=== PATIENT | female | born 1935 | race Caucasian/White ===

== ENCOUNTER 2022-11-09 15:32 | Inpatient (IN) ==
[2022-11-09] MEDS ORDERED: OPTIRAY 320 500ml IV ONE (15:46)
[2022-11-09 16:01] LABS: Basophils # (auto) 0.03 K/uL (0-0.2); Basophils % (auto) 0.5 %; Eosinophils # (auto) 0.02 K/uL (0-0.50); Eosinophils % (auto) 0.4 %; Hematocrit (blood only) 35.5 % (34.1-44.9); Immature Granulocytes # (auto) 0.02 K/uL (0.00-0.02); Immature Granulocytes % (auto) 0.4 %; Lymphocytes # (auto) 0.55 K/uL (1.2-3.4); Lymphocytes % (auto) 9.7 %; Mean Corpuscular Hemoglobin 32.5 pg (25.0-34.0); Mean Corpuscular Hgb Conc 33.8 g/dL (32.0-36.0); Mean Corpuscular Volume 96.2 fL (80.0-100.0); Mean Platelet Volume 10.7 fL (9.4-12.3); Monocytes # (auto) 0.37 K/uL (0.24-0.82); Monocytes % (auto) 6.5 %; Neutrophils # (auto) 4.68 K/uL (1.4-6.5); Neutrophils % (auto) 82.5 %; Platelet Count 247 K/uL (130-400); RDW Coefficient of Variation 13.2 % (11.5-14.5); RDW Standard Deviation 47.4 fL (36.4-46.3); Red Blood Count 3.69 M/uL (3.93-5.22); White Blood Count 5.67 K/ul (4.8-10.8)
--- NOTE | 2022-11-09 16:01 | CT Scan Report ---
CT head/brain wo con CLINICAL HISTORY: 87 years-old Female with neuro deficit, acute stroke suspected. Acute strokelike s ymptoms. TECHNIQUE: Multiple axial CT images of the head were obtained without contrast. A dose lowering tech nique was utilized adhering to the principles of ALARA. COMPARISON: CTA had and neck of same day FINDINGS: No acute intracranial hemorrhage, midline shift, intra-axial mass, hydrocephalus, territorial ischemi a or abnormal extra-axial collection. Hyperdense partially calcified mass in the superior quadrigemin al plate cistern within the falx cerebri measures approximately 4.3 x 3.3 x 3.5 cm causing mass effec t upon the adjacent third and lateral ventricles, thalami and parietal lobes. Involutional changes. M oderate white matter hypodensities suggestive of chronic microvascular ischemic disease. Cerebral vas cular calcifications. The calvarium is intact. The paranasal sinuses, mastoid air cells, and middle ear cavities are clear . IMPRESSION: 1. No acute intracranial abnormality. 2. 4.3 cm hyperdense partially calcified extra-axial mass involving the mid aspect of the falx cerebr i extending into the superior aspect of the quadrigeminal plate cistern is suggestive of a probable m eningioma causing local mass effect. As a precautionary measure, a nonemergent follow-up MRI of the b rain with and without IV contrast may be considered. 3. Involutional changes with chronic microvascular ischemic disease. ACT 112: Negative or not required by law. The above report was generated using voice recognition software. It may contain grammatical, syntax o r spelling errors. Electronically signed by: Reynaldo George M.D. 11/09/2022 4:00 PM
[2022-11-09 16:16] LABS: Partial Thromboplastin Ratio 0.9; Prothrombin Time 10.7 Seconds (9.0-12.0)
[2022-11-09] MEDS ORDERED: ASPIRIN 300 MG SUPP PR ONE (16:18)
[2022-11-09] MEDS ORDERED: SODIUM CHLORIDE 0.9% 1000ML 500 ML IV ONE (16:18)
[2022-11-09 16:26] LABS: Albumin Globulin Ratio 1.5 (0.9-2); Albumin Level 4.1 gm/dl (3.4-5.0); BUN Creatinine Ratio 35.1 (10-20); Bilirubin,Total 0.6 mg/dl (0.2-1.0); Calcium 9.1 mg/dl (8.5-10.1); Creatinine Clr Calc Pharmacy 66.2 ml/min; Est GFR (African American) 97.3 ml/min; Est GFR (Non-African American) 83.9 ml/min; Globulin 2.7 gm/dl (2.5-4.0); Potassium 4.4 mmol/L (3.5-5.1); Total Protein 6.8 gm/dl (6.0-8.3)
[2022-11-09] MEDS ORDERED: ATORVASTATIN 40 MG TAB PO ONE (16:30)
[2022-11-09] MEDS ORDERED: MAGNESIUM SULFATE / D5W 1 GM/100 ML BAG IV SCH (16:30)
[2022-11-09] MEDS ORDERED: ATORVASTATIN 40 MG TAB PO SCH (16:30)
[2022-11-09 16:31] LABS: Troponin I High Sensitivity 11.3 pg/ml (0-14)
--- NOTE | 2022-11-09 16:32 | History & Physical Report ---
Date of Service November 09, 2022 Assessment & Plan (1) Acute CVA (cerebrovascular accident): (2) Meningioma: (3) Weakness of right upper extremity: (4) Dysarthria: Plan: - Admit to PCU - Stroke order set completed, no indication for thrombolytic as pt with likely meningioma on CT reviewed personally by myself. -Meningioma is known since 2015 and previously followed with Dr. Rosales with neurology as outpatient, was nonoperable, has not followed with neurology since this physician retired years ago. Pt notes intermittent visual disturbances every few months as per HPI, none today. - Teleneurology with [facility] was contacted by the ER. Aspirin and atorvastatin ordered already. - I discussed the case with Dr. Brown, neurologist myself over the phone. He has recommended statin and aspirin as soon as possible, orally if the patient can tolerate swallowing. Speech therapy is consulted for evaluation. If pt can not take oral medications should place an NGT. It is likely that this is a small vessel lacunar infarct involving a subcortical branch of the internal capsule of the thalamus region which are commonly associated with stuttering symptoms. Frequent evaluations of strength and speech are recommended to assess for acute changes. If worsening symptoms then need to give Plavix load of 300 mg and call teleneurology back. TPA was not given due to the increased bleeding risk associated with meningioma. Allow permissive hypertension with SBP 180-200 / DBP 90-100 - CT head reviewed, will obtain MRI brain w/wo contrast - Neurology consulted - Dr. Truong - PT/OT consults placed - Discussion with daughterDanyelle was held at bedside, all questions and concerns were addressed. DVT ppx: teds, scds, aspirin 81 mg daily CODE: DNR/DNI Dispo: From home, lives alone, PT/OT consults, likely to remain in the hospital x 1-2 days. History of Present Illness Chief Complaint: CVA Primary Care Provider: NO PCP This is an 87 yo F with PMhx of breast cancer s/p bilateral mastectomy in the early 1980s, and hx of meningioma which was nonoperable since 2014, who presents with acute onset of right lower extremity weakness which began at approximately 1330 this afternoon. She also had dysarthria, right upper and lower extremity weakness at the same time. Pt reports that she had difficulty calling on the phone, and when she attempted to stand from a sitting position, she slumped down to the ground. Pt was trying to call her son who lives next door and 911 for about an hour until she was able to get 911 to come to the house. She feels her speech is a bit better at this time, as she can say more than one word although it is more garbled. Pt notes she is unable to move her right arm much at all, and has to assist it with the left. Strength in the right leg is weak compared to the left as well. Prior to this event, she lives at home independently and does not use any ambulatory devices. Pt notes previously followed with Dr. Rosales with neurology for the meningioma and that it was non operable. She mentions getting "blotchy eyes" with spots and visual disturbances every few months since knowing that the meningioma was there, and that after lying down for 20-30 minutes this would improve. Denies any visual prodrome today and denies any visual disturbances like this recently. Pt denies headache. Family Hx: has one younger brother who of throat/mouth cancer and reports he chewed snuff. Denies family hx of heart disease, lung issues, diabetes, stroke. Surgical Hx: small bowel obstruction with lysis of adhesions in 2015, bilateral mastectomy in , partial hysterectomy prior to 1979. Social Hx: Pt does not routinely take any medications. No hx of smoking or alcohol use. Allergies Allergy/AdvReac Type Severity Reaction Status Date / Time No Known Allergies Allergy Verified 11/09/22 16:35 Home Medications Medication Instructions Recorded Confirmed Type No Known Home Medications 11/09/22 11/09/22 History Past Med/Surg History Medical History Hx of small bowel obstruction S/p lysis of adhesions HX: breast cancer Meningioma Surgical History Hx of bilateral mastectomy Family History Brother Cancer throat cancer Social History Smoking Status: Never smoker Second Hand Exposure: Yes; Do You Dip or Chew Tobacco: No; Tobacco Cessation Education Requested by Patient: No Hx Alcohol Use: No Hx Substance Use: No Preferred Language: Slovak Communication Ability: Effective Upkeep Mechanic Required: No Beliefs That Will Affect Care: None Current Living Situation: Alone Other Information That Helps Us Care for You: No Feels Safe at Home: Yes Safety Concerns: Feels Safe At This Time Assistive Devices: None Review of Systems Review of Systems: Constitutional: No fever, sweats or chills Eyes: As per HPI, No diplopia, no worsening or blurred vision ENT: normal hearing, no trouble swallowing Respiratory: No cough, sputum, dyspnea at rest or on exertion Cardiovascular: No chest pain, tightness or palpitations Abdomen: No pain, nausea, vomiting, diarrhea or constipation Musculoskeletal: No joint pain, calf pain, swelling Neurologic: + Right sided upper extremity weakness, right lower extremity weakness, +difficulty speaking, no other numbness/tingling Psychiatric: No anxiety or depression Skin: No rash or itch Physical Exam 2 Physical Exam: General: awake, alert, no apparent distress Head: Normocephalic, atraumatic ENT: PERRL, EOMI, no pharyngeal exudate, mucous membranes moist Chest: Clear to auscultation, on room air, no adventitious breath sounds Cardiac: Regular rate and rhythm, + opening click, no murmur, no JVD, normal peripheral pulses, good capillary refill Abdominal: NABS x 4 quadrants, soft, nondistended, nontender to palpation, no rebound or guarding Extremities: normal muscle bulk and tone, equal bilaterally, no lower extremity edema or erythema, no calf tenderness with palpation Psych: Normal mood and affect Neuro: AAO x 3, CN II-XII intact. RUE unable to extend arms, cannot pronate, can squeeze fingers with good strength but cannot complete dexterity testing with finger to thumb. RLE strength discrepancy rated 4/5, compared to the left as a 5/5. Difficulty with heel to morris testing. Facial nerve testing is symmetrical, can smile/frown/wrinkle forehead without droop. + Dysarthria with garbled speech but is able to talk in sentences which are mostly able to be made out, +stuttering of speech. Results & Data Results & Data ([facility]) Vital Signs (Past 12 Hours) Vital Signs Temp Pulse Resp BP Pulse Ox O2 Del Method 11/09/22 15:59 36.9 C 91 H 22 184/101 H 98 Room Air Laboratory Results 11/09/22 11/09/22 11/09/22 15:52 15:30 15:30 WBC RBC Hgb Hct MCV MCH MCHC RDW Std Deviation RDW Coeff of Valeriy Plt Count MPV Immature Gran % (Auto) Neut % (Auto) Lymph % (Auto) Glynn % (Auto) Eos % (Auto) Baso % (Auto) Neut # (Auto) Lymph # (Auto) Glynn # (Auto) Eos # (Auto) Baso # (Auto) Immature Gran # (Auto) PT 10.7 INR 1.0 APTT 26.0 PTT Ratio 0.9 Sodium 138 Potassium 4.4 Chloride 104 Carbon Dioxide 27 Anion Gap 7 BUN 20 Creatinine 0.57 L Est Cr Clr Drug Dosing 66.2 Est GFR ( Amer) 97.3 Est GFR (Non-Af Amer) 83.9 BUN/Creatinine Ratio 35.1 H Glucose 98 POC Glucose 97 Calcium 9.1 Magnesium 2.0 Total Bilirubin 0.6 AST 21 ALT 13 Alkaline Phosphatase 53 Troponin I High Sens 11.3 Total Protein 6.8 Albumin 4.1 Globulin 2.7 Albumin/Globulin Ratio 1.5 SARS-CoV-2, RNA, NAAT 11/09/22 11/09/22 15:30 14:38 WBC 5.67 RBC 3.69 L Hgb 12.0 Hct 35.5 MCV 96.2 MCH 32.5 MCHC 33.8 RDW Std Deviation 47.4 H RDW Coeff of Valeriy 13.2 Plt Count 247 MPV 10.7 Immature Gran % (Auto) 0.4 Neut % (Auto) 82.5 Lymph % (Auto) 9.7 Glynn % (Auto) 6.5 Eos % (Auto) 0.4 Baso % (Auto) 0.5 Neut # (Auto) 4.68 Lymph # (Auto) 0.55 L Glynn # (Auto) 0.37 Eos # (Auto) 0.02 Baso # (Auto) 0.03 Immature Gran # (Auto) 0.02 PT INR APTT PTT Ratio Sodium Potassium Chloride Carbon Dioxide Anion Gap BUN Creatinine Est Cr Clr Drug Dosing Est GFR ( Amer) Est GFR (Non-Af Amer) BUN/Creatinine Ratio Glucose POC Glucose Calcium Magnesium Total Bilirubin AST ALT Alkaline Phosphatase Troponin I High Sens Total Protein Albumin Globulin Albumin/Globulin Ratio SARS-CoV-2, RNA, NAAT NEGATIVE Diagnostic Findings Chest X-Ray 11/09/22 15:36 XR chest 1V portable CLINICAL HISTORY: neuro deficit, acute stroke suspected TECHNIQUE: Single frontal radiograph of the chest was obtained. Comparison: None available at the time of this dictation. FINDINGS: No lines and tubes are seen. Calcified aortic knob is seen. There is suggestion of emphysema. No evidence of pleural effusion or pneumothorax. IMPRESSION: No acute chest disease. ACT 112: Negative or not required by law. Electronically signed by: Timmy Mckinnon M.D. 11/09/2022 4:[address] 11/09/22 15:36 CT head/brain wo con CLINICAL HISTORY: 87 years-old Female with neuro deficit, acute stroke suspected. Acute strokelike symptoms. TECHNIQUE: Multiple axial CT images of the head were obtained without contrast. A dose lowering technique was utilized adhering to the principles of ALARA. COMPARISON: CTA had and neck of same day FINDINGS: No acute intracranial hemorrhage, midline shift, intra-axial mass, hydrocephalus, territorial ischemia or abnormal extra-axial collection. Hyperdense partially calcified mass in the superior quadrigeminal plate cistern within the falx cerebri measures approximately 4.3 x 3.3 x 3.5 cm causing mass effect upon the adjacent third and lateral ventricles, thalami and parietal lobes. Involutional changes. Moderate white matter hypodensities suggestive of chronic microvascular ischemic disease. Cerebral vascular calcifications. The calvarium is intact. The paranasal sinuses, mastoid air cells, and middle ear cavities are clear. IMPRESSION: 1. No acute intracranial abnormality. 2. 4.3 cm hyperdense partially calcified extra-axial mass involving the mid aspect of the falx cerebri extending into the superior aspect of the quadrigeminal plate cistern is suggestive of a probable meningioma causing local mass effect. As a precautionary measure, a nonemergent follow-up MRI of the brain with and without IV contrast may be considered. 3. Involutional changes with chronic microvascular ischemic disease. ACT 112: Negative or not required by law. The above report was generated using voice recognition software. It may contain grammatical, syntax or spelling errors. Electronically signed by: Reynaldo George M.D. 11/09/2022 4:00 PM Head CTA 11/09/22 15:36 CT ANGIOGRAM OF THE BRAIN; CT ANGIOGRAM OF THE NECK CLINICAL HISTORY: Right-sided weakness. Neurological deficit. Stroke like symptoms. COMPARISON STUDY: Unenhanced CT of the brain performed concurrently on 11/09/2022. TECHNIQUE: Following the IV administration of 109 of Optiray 320, CT angiogram of the head and neck was performed from the aortic arch to the vertex. Images are reviewed in the axial, sagittal, and coronal planes. 3-D MIPS images are created and assessed. IV contrast was administered without complication. All measurements were calculated based on NASCET criteria. A dose lowering technique was utilized adhering to the principles of ALARA. CT DOSE: 1180.87 mGy.cm FINDINGS: Brain parenchyma: There is age-related involutional change noting moderate confluent subcortical and periventricular microangiopathic disease. There is no evidence of hemorrhage, midline shift, or acute territorial ischemia by CT criteria noting angiographic phase technique. There is an approximately 4 x 4 x 4 cm calcification-containing extra-axial mass identified in the posterior fossa along the tentorium cerebelli and falx. This causes localized mass effect. There is no evidence of obstructing hydrocephalus. No additional enhancing lesion is seen. The ventricles, sulci, and cisterns are prominent secondary to involutional change. Mitchell-white matter differentiation is preserved. No extra- axial fluid collection is seen. Thoracic aorta: There is atherosclerotic calcification of the thoracic aorta. Visualized portions of the thoracic aorta are normal in caliber. The aortic arch demonstrates standard 3-vessel anatomy. Right carotid arterial system: The right common carotid artery is widely patent, as are the right internal and external carotid arteries. Mild calcified plaque is seen in the carotid bulb. Left carotid arterial system: The left common carotid artery is widely patent, as are the left internal and external carotid arteries. Calcified plaque is seen in the carotid bulb. Vertebral arteries: The vertebral arteries are widely patent bilaterally noting left-sided dominance. Subclavian arteries: Widely patent bilaterally. Intracranial vasculature: There is atherosclerotic calcification of the cavernous carotid and vertebral arteries. The [place] is developmentally complete. The internal carotid arteries are patent at the skull base, as are the anterior and middle cerebral arteries bilaterally. The vertebrobasilar system and posterior cerebral arteries are widely patent. The left vertebral artery is dominant. There is no aneurysm, high-grade stenosis, or focal vessel cut off seen throughout the intracranial circulation. Jugular veins: Patent bilaterally. Dural sinuses: Patent. 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 Partially visualized upper lobe lung parenchyma appears clear noting parenchymal scarring. Soft tissues: The visualized pharyngeal soft tissues are normal in appearance noting angiographic phase technique. The oropharyngeal airway appears widely patent. The thyroid gland is mildly enlarged and heterogeneous. The salivary glands are normal in appearance. No cervical lymphadenopathy is seen. Skeletal structures: The skeletal structures are osteopenic. The calvarium appears intact. The cervical spine is maintained noting mild multilevel spondylosis. No lytic or blastic lesion is seen. Orbits: The bony orbits are intact. Orbital contents are normal as visualized noting bilateral ocular lens implants. Sinuses and mastoids: The paranasal sinuses are clear. The mastoid air cells are well pneumatized. IMPRESSION: 1. There is no evidence of hemorrhage, midline shift, or acute territorial ischemia by CT criteria noting angiographic phase technique. 2. There is approximately 4 cm extra-axial mass lesion in the posterior fossa as detailed above. This is typical for a meningioma and causes localized mass effect. There is no evidence of obstructing hydrocephalus. 3. Unremarkable CT angiogram of the brain. 4. Unremarkable CT angiogram of the neck. ACT 112: Negative or not required by law. Electronically signed by: Nicko Love M.D. 11/09/2022 4:32 PM Neck CTA 11/09/22 15:36 CT ANGIOGRAM OF THE BRAIN; CT ANGIOGRAM OF THE NECK CLINICAL HISTORY: Right-sided weakness. Neurological deficit. Stroke like symptoms. COMPARISON STUDY: Unenhanced CT of the brain performed concurrently on 11/09/2022. TECHNIQUE: Following the IV administration of 109 of Optiray 320, CT angiogram of the head and neck was performed from the aortic arch to the vertex. Images are reviewed in the axial, sagittal, and coronal planes. 3-D MIPS images are created and assessed. IV contrast was administered without complication. All measurements were calculated based on NASCET criteria. A dose lowering technique was utilized adhering to the principles of ALARA. CT DOSE: 1180.87 mGy.cm FINDINGS: Brain parenchyma: There is age-related involutional change noting moderate confluent subcortical and periventricular microangiopathic disease. There is no evidence of hemorrhage, midline shift, or acute territorial ischemia by CT criteria noting angiographic phase technique. There is an approximately 4 x 4 x 4 cm calcification-containing extra-axial mass identified in the posterior fossa along the tentorium cerebelli and falx. This causes localized mass effect. There is no evidence of obstructing hydrocephalus. No additional enhancing lesion is seen. The ventricles, sulci, and cisterns are prominent secondary to involutional change. Mitchell-white matter differentiation is preserved. No extra- axial fluid collection is seen. Thoracic aorta: There is atherosclerotic calcification of the thoracic aorta. Visualized portions of the thoracic aorta are normal in caliber. The aortic arch demonstrates standard 3-vessel anatomy. Right carotid arterial system: The right common carotid artery is widely patent, as are the right internal and external carotid arteries. Mild calcified plaque is seen in the carotid bulb. Left carotid arterial system: The left common carotid artery is widely patent, as are the left internal and external carotid arteries. Calcified plaque is seen in the carotid bulb. Vertebral arteries: The vertebral arteries are widely patent bilaterally noting left-sided dominance. Subclavian arteries: Widely patent bilaterally. Intracranial vasculature: There is atherosclerotic calcification of the cavernous carotid and vertebral arteries. The [place] is developmentally complete. The internal carotid arteries are patent at the skull base, as are the anterior and middle cerebral arteries bilaterally. The vertebrobasilar system and posterior cerebral arteries are widely patent. The left vertebral artery is dominant. There is no aneurysm, high-grade stenosis, or focal vessel cut off seen throughout the intracranial circulation. Jugular veins: Patent bilaterally. Dural sinuses: Patent. 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 Partially visualized upper lobe lung parenchyma appears clear noting parenchymal scarring. Soft tissues: The visualized pharyngeal soft tissues are normal in appearance noting angiographic phase technique. The oropharyngeal airway appears widely patent. The thyroid gland is mildly enlarged and heterogeneous. The salivary glands are normal in appearance. No cervical lymphadenopathy is seen. Skeletal structures: The skeletal structures are osteopenic. The calvarium appears intact. The cervical spine is maintained noting mild multilevel spondylosis. No lytic or blastic lesion is seen. Orbits: The bony orbits are intact. Orbital contents are normal as visualized noting bilateral ocular lens implants. Sinuses and mastoids: The paranasal sinuses are clear. The mastoid air cells are well pneumatized. IMPRESSION: 1. There is no evidence of hemorrhage, midline shift, or acute territorial ischemia by CT criteria noting angiographic phase technique. 2. There is approximately 4 cm extra-axial mass lesion in the posterior fossa as detailed above. This is typical for a meningioma and causes localized mass effect. There is no evidence of obstructing hydrocephalus. 3. Unremarkable CT angiogram of the brain. 4. Unremarkable CT angiogram of the neck. ACT 112: Negative or not required by law. Electronically signed by: Nicko Love M.D. 11/09/2022 4:32 PM Pelvis X-Ray 11/09/22 15:36 XR pelvis 1-2V routine CLINICAL HISTORY: fall TECHNIQUE: A single frontal view of the pelvis was obtained. Comparison: None available at the time of this dictation. FINDINGS: There is no evidence of an acute fracture. Degenerative changes are seen in the hip joints and lumbar spine. No soft tissue abnormality is seen. Excretion of contrast is noted in the ureters and bladder likely due to prior contrast study. IMPRESSION: Degenerative changes without evidence of acute abnormality. ACT 112: Negative or not required by law. Electronically signed by: Timmy Mckinnon M.D. 11/09/2022 4:52 PM Code Status & VTE Plan Code Status DNR/DNI - discussed with the patient at bedside Supervising Physician Co-Signing Physician Notes Pt seen and examined by me, care coordinated w/ G. ANN Johnson, pls refer to her note above for further detail. 87 F w/ hx of meningioma who now presents with CVA - right sided weakness and slurred speech. Pt's daughter present at the bedside. Pt currently awake, alert, oriented and answering questions appropriately. Continues to have slurred speech buy able to provide hx. No chest pain, palpitations, shortness of breath. No abd. pain, nausea, vomiting, No headache. + RUE and RLE weakness. Skin is warm and dry. Stroke telemedicine contacted - w/ [facility] - and ASA + statin was initiated. Pt passed speech eval and able to take meds. Continue to closely monitor. Obtain brain MRI. Neurology inpt consult. MD Jazmín
--- NOTE | 2022-11-09 16:34 | CT Scan Report ---
CT ANGIOGRAM OF THE BRAIN; CT ANGIOGRAM OF THE NECK CLINICAL HISTORY: Right-sided weakness. Neurological deficit. Stroke like symptoms. COMPARISON STUDY: Unenhanced CT of the brain performed concurrently on 11/09/2022. TECHNIQUE: Following the IV administration of 109 of Optiray 320, CT angiogram of the head and neck w as performed from the aortic arch to the vertex. Images are reviewed in the axial, sagittal, and ramando nal planes. 3-D MIPS images are created and assessed. IV contrast was administered without complicati on. All measurements were calculated based on NASCET criteria. A dose lowering technique was utilize d adhering to the principles of ALARA. CT DOSE: 1180.87 mGy.cm FINDINGS: Brain parenchyma: There is age-related involutional change noting moderate confluent subcortical and periventricular microangiopathic disease. There is no evidence of hemorrhage, midline shift, or acute territorial ischemia by CT criteria noting angiographic phase technique. There is an approximately 4 x 4 x 4 cm calcification-containing extra-axial mass identified in the posterior fossa along the te ntorium cerebelli and falx. This causes localized mass effect. There is no evidence of obstructing hy drocephalus. No additional enhancing lesion is seen. The ventricles, sulci, and cisterns are prominen t secondary to involutional change. Mitchell-white matter differentiation is preserved. No extra-axial fl uid collection is seen. Thoracic aorta: There is atherosclerotic calcification of the thoracic aorta. Visualized portions of the thoracic aorta are normal in caliber. The aortic arch demonstrates standard 3-vessel anatomy. Right carotid arterial system: The right common carotid artery is widely patent, as are the right int ernal and external carotid arteries. Mild calcified plaque is seen in the carotid bulb. Left carotid arterial system: The left common carotid artery is widely patent, as are the left event marketing intern al and external carotid arteries. Calcified plaque is seen in the carotid bulb. Vertebral arteries: The vertebral arteries are widely patent bilaterally noting left-sided dominance. Subclavian arteries: Widely patent bilaterally. Intracranial vasculature: There is atherosclerotic calcification of the cavernous carotid and vertebr al arteries. The [place] is developmentally complete. The internal carotid arteries are manuel nt at the skull base, as are the anterior and middle cerebral arteries bilaterally. The vertebrobasil ar system and posterior cerebral arteries are widely patent. The left vertebral artery is dominant. T here is no aneurysm, high-grade stenosis, or focal vessel cut off seen throughout the intracranial ci rculation. Jugular veins: Patent bilaterally. Dural sinuses: Patent. 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 Partially visualized upper lobe l paulina parenchyma appears clear noting parenchymal scarring. Soft tissues: The visualized pharyngeal soft tissues are normal in appearance noting angiographic pha se technique. The oropharyngeal airway appears widely patent. The thyroid gland is mildly enlarged an d heterogeneous. The salivary glands are normal in appearance. No cervical lymphadenopathy is seen. Skeletal structures: The skeletal structures are osteopenic. The calvarium appears intact. The cervic al spine is maintained noting mild multilevel spondylosis. No lytic or blastic lesion is seen. Orbits: The bony orbits are intact. Orbital contents are normal as visualized noting bilateral ocular lens implants. Sinuses and mastoids: The paranasal sinuses are clear. The mastoid air cells are well pneumatized. IMPRESSION: 1. There is no evidence of hemorrhage, midline shift, or acute territorial ischemia by CT criteria no ting angiographic phase technique. 2. There is approximately 4 cm extra-axial mass lesion in the posterior fossa as detailed above. This is typical for a meningioma and causes localized mass effect. There is no evidence of obstructing hy drocephalus. 3. Unremarkable CT angiogram of the brain. 4. Unremarkable CT angiogram of the neck. ACT 112: Negative or not required by law. Electronically signed by: Nicko Love M.D. 11/09/2022 4:32 PM
[2022-11-09] MEDS: MAGNESIUM SULFATE / D5W 1 GM/100 ML BAG IV SCH ×2 (16:48→17:24)
--- NOTE | 2022-11-09 16:53 | XRay Report ---
XR chest 1V portable CLINICAL HISTORY: neuro deficit, acute stroke suspected TECHNIQUE: Single frontal radiograph of the chest was obtained. Comparison: None available at the time of this dictation. FINDINGS: No lines and tubes are seen. Calcified aortic knob is seen. There is suggestion of emphysema. No evid ence of pleural effusion or pneumothorax. IMPRESSION: No acute chest disease. ACT 112: Negative or not required by law. Electronically signed by: Timmy Mckinnon M.D. 11/09/2022 4:51 PM
--- NOTE | 2022-11-09 16:53 | XRay Report ---
XR pelvis 1-2V routine CLINICAL HISTORY: fall TECHNIQUE: A single frontal view of the pelvis was obtained. Comparison: None available at the time of this dictation. FINDINGS: There is no evidence of an acute fracture. Degenerative changes are seen in the hip joints and lumbar spine. No soft tissue abnormality is seen. Excretion of contrast is noted in the ureters and bladde r likely due to prior contrast study. IMPRESSION: Degenerative changes without evidence of acute abnormality. ACT 112: Negative or not required by law. Electronically signed by: Timmy Mckinnon M.D. 11/09/2022 4:52 PM
[2022-11-09] MEDS: SODIUM CHLORIDE 0.9% 500 ML IV SCH ×2 (17:24→23:52)
--- NOTE | 2022-11-09 17:59 | Emergency Department Note ---
History of Present Illness General Chief complaint: Stroke Alert Stated complaint: stroke alert Time Seen by Provider: 11/09/22 15:35 Source: EMS History of Present Illness Provider complaint: Weakness fall Onset (ago): hour(s) 2 87-year-old female presents emergency department for weakness and fall. Per EMS the patient tried to get up at approximately 1:30 PM, 2 hours ago and felt like she could not move her right leg and then subsequently fell. Per EMS she was having dysarthria and aphasia and weakness in her right upper extremity as well as the right lower extremity. No blood thinners. No fevers. No headaches. Home Medications Medication Instructions Recorded Confirmed Type No Known Home Medications 11/09/22 11/09/22 History Allergies Allergy/AdvReac Type Severity Reaction Status Date / Time No Known Allergies Allergy Verified 11/09/22 16:35 Past Med/Surg History Medical History Hx of small bowel obstruction S/p lysis of adhesions HX: breast cancer Meningioma Surgical History Hx of bilateral mastectomy Family History Brother Cancer throat cancer Social History Smoking Status: Never smoker Hx Alcohol Use: No Hx Substance Use: No Preferred Language: Albanian Feels Safe at Home: Yes Review of Systems A total of 10 systems reviewed and were otherwise negative Physical Exam Vital Signs Vital Signs - 24 hr 11/09/22 15:59 11/09/22 16:53 11/09/22 17:25 Temperature 36.9 C Temperature Source Oral Pulse Rate 91 H Pulse Rate [Right Finger] 74 80 Respiratory Rate 22 22 19 Respiratory Effort / Characteristics Non-Labored Spontaneous Non-Labored Spontaneous Respiratory Depth Normal Normal Respiratory Pattern Regular Blood Pressure 184/101 H Blood Pressure [Right Arm] 147/77 H 161/121 H Blood Pressure Mean 128 Blood Pressure Mean [Right Arm] 100 134 Pulse Oximetry 98 100 96 Oxygen Delivery Method Room Air Room Air Room Air Sepsis Recent Fever Within 48 Hours No Sepsis New/Unexplained Change in Mental Status N/A Sepsis Action Taken by Nursing No Action Required 11/09/22 17:46 Temperature Temperature Source Pulse Rate Pulse Rate [Right Finger] 76 Respiratory Rate 24 Respiratory Effort / Characteristics Non-Labored Spontaneous Respiratory Depth Normal Respiratory Pattern Blood Pressure Blood Pressure [Right Arm] 171/89 H Blood Pressure Mean Blood Pressure Mean [Right Arm] 116 Pulse Oximetry 98 Oxygen Delivery Method Room Air Sepsis Recent Fever Within 48 Hours Sepsis New/Unexplained Change in Mental Status Sepsis Action Taken by Nursing Physical Exam EYES: Conjunctivae and EOM are normal. Pupils are equal, round, and reactive to light. Right eye exhibits no discharge. Left eye exhibits no discharge. No scleral icterus. NECK: Normal range of motion. Neck supple. No JVD present. No spinous process tenderness present. No carotid bruit present. No rigidity. No tracheal deviation and normal range of motion present. No Brudzinski's sign and no Kernig's sign noted. CV: Normal rate, regular rhythm, normal heart sounds and intact distal pulses. There is no peripheral edema. Palpable radial pulses bue. PULM/CHEST: Effort normal and breath sounds normal. No respiratory distress. No stridor. She has no wheezes. She has no rales. -Chest Wall: She exhibits no tenderness. ABD: The abdomen is soft. MUSC/SKEL: Pelvis stable. NEURO: NIHSS: 11 (5b:3, 6b:3, 7:1, 8:1, 9:1, 10:1, 11:1) SKIN: Skin is warm and dry. She is not diaphoretic. Course Course 1515:Per EMS the patient tried to get up at approximately 1:30 PM, 2 hours ago and felt like she could not move her right leg and then subsequently fell. Per EMS she was having dysarthria and aphasia and weakness in her right upper extremity as well as the right lower extremity. Code stroke called for the patient. 1535: The patient was evaluated in room B1. A complete history and physical exam was performed Cardiac monitoring: An order was placed for continuous cardiac monitoring. The monitor shows a rate of 80 with sinus rhythm 1543: Discussed the case with Dr. Shannon Rodriguez teleneurology who states he will evaluate the patient. 1550: CT of the head reviewed by me shows no ICH does show a large mass possibly the patient's meningioma. 1618: Vital signs stable. Patient remains with right upper extremity and lower extremity weakness, mild aphasia and dysarthria. Patient was evaluated by Jennifer telestroke. Given the location of the tumor Jennifer telestroke recommends against any TNKase. Jennifer telestroke recommends the patient be treated with aspirin, Lipitor, magnesium 2 g over 1 hour, as well as 500 cc normal saline bolus followed by normal saline 100 cc/h. He recommends the patient be admitted to the hospital service for stroke work-up. [facility] hospitalist team will be contacted and patient be admitted to their service. Administered Medications Sodium Chloride (Nss) 500 mls @ 100 mls/hr IV .Q5H KAREN Stop: 12/09/22 16:29 Last Admin: 11/09/22 17:24 Dose: 100 mls/hr Documented By: ASKaden Discontinued Medications Aspirin (Aspirin 300 Mg Supp) [address] ONE ONE Stop: 11/09/22 16:19 Last Admin: 11/09/22 17:24 Dose: 300 mg Documented By: COLIN Atorvastatin Calcium (Atorvastatin 40 Mg Tab) 40 mg PO NOW ONE Stop: 11/09/22 16:31 Last Admin: 11/09/22 17:24 Dose: 40 mg Documented By: COLIN Magnesium Sulfate/Dextrose (Magnesium Sulfate / D5w) 1 gm in 100 mls @ 200 mls/hr IV Q30M KAREN Stop: 11/09/22 17:17 Last Admin: 11/09/22 17:24 Dose: 200 mls/hr Documented By: Infusion: 11/09/22 17:18 Dose: 200 mls/hr Documented By: Admin: 11/09/22 16:48 Dose: 200 mls/hr Documented By: COLIN Sodium Chloride (Nss 1000ml) 500 mls @ 999 mls/hr IV .Q31M ONE Stop: 11/09/22 16:48 Last Infusion: 11/09/22 17:26 Dose: 0 mls/hr Documented By: ASKaden Admin: 11/09/22 16:48 Dose: 999 mls/hr Documented By: COLIN Ioversol (Optiray 320 500ml) 109 ml IV ONCE ONE Stop: 11/09/22 15:47 Last Admin: 11/09/22 15:48 Dose: 109 ml Documented By: REYNA Critical Care Time Critical Care Time: Yes Total Critical Care Time: 68 I have personally spent greater than 68 minutes of critical care time in the direct management of this patient. This includes bedside care, interpretation of diagnostic studies, and testing, discussion with consultants, patient, and family members, and other required patient management activities. This 68 minut es is in excess of all separately billable procedures. Medical Decision Making Laboratory Data Result diagrams: 11/09/22 15:30 11/09/22 15:30 Lab Results 11/09/22 11/09/22 11/09/22 Range/Units 14:38 15:30 15:30 WBC 5.67 (4.8-10.8) K/ul RBC 3.69 L (3.93-5.22) M/uL Hgb 12.0 (12.0-16.0) g/dl Hct 35.5 (34.1-44.9) % MCV 96.2 (80.0-100.0) fL MCH 32.5 (25.0-34.0) pg MCHC 33.8 (32.0-36.0) g/dL RDW Std Deviation 47.4 H (36.4-46.3) fL RDW Coeff of Valeriy 13.2 (11.5-14.5) % Plt Count 247 (130-400) K/uL MPV 10.7 (9.4-12.3) fL Immature Gran % (Auto) 0.4 % Neut % (Auto) 82.5 % Lymph % (Auto) 9.7 % Edmonson % (Auto) 6.5 % Eos % (Auto) 0.4 % Baso % (Auto) 0.5 % Neut # (Auto) 4.68 (1.4-6.5) K/uL Lymph # (Auto) 0.55 L (1.2-3.4) K/uL Edmonson # (Auto) 0.37 (0.24-0.82) K/uL Eos # (Auto) 0.02 (0-0.50) K/uL Baso # (Auto) 0.03 (0-0.2) K/uL Immature Gran # (Auto) 0.02 (0.00-0.02) K/uL PT 10.7 (9.0-12.0) Seconds INR 1.0 (0.9-1.1) APTT 26.0 (21.0-31.0) Seconds PTT Ratio 0.9 Sodium (136-145) mmol/L Potassium (3.5-5.1) mmol/L Chloride (98-107) mmol/L Carbon Dioxide (21-32) mmol/L Anion Gap (3-11) BUN (6-23) mg/dl Creatinine (0.6-1.2) mg/dl Est Cr Clr Drug Dosing ml/min Est GFR ( Amer) ml/min Est GFR (Non-Af Amer) ml/min BUN/Creatinine Ratio (10-20) Glucose (70-99(Fasting)) mg/dl POC Glucose (70-99) mg/dl Calcium (8.5-10.1) mg/dl Magnesium (1.7-2.4) mg/dl Total Bilirubin (0.2-1.0) mg/dl AST (13-39) U/L ALT (7-52) U/L Alkaline Phosphatase (34-104) U/L Troponin I High Sens (0-14) pg/ml Total Protein (6.0-8.3) gm/dl Albumin (3.4-5.0) gm/dl Globulin (2.5-4.0) gm/dl Albumin/Globulin Ratio (0.9-2) SARS-CoV-2, RNA, NAAT NEGATIVE (NEGATIVE) Blood Type Antibody Screen 11/09/22 11/09/22 11/09/22 Range/Units 15:30 15:52 16:34 WBC (4.8-10.8) K/ul RBC (3.93-5.22) M/uL Hgb (12.0-16.0) g/dl Hct (34.1-44.9) % MCV (80.0-100.0) fL MCH (25.0-34.0) pg MCHC (32.0-36.0) g/dL RDW Std Deviation (36.4-46.3) fL RDW Coeff of Valeriy (11.5-14.5) % Plt Count (130-400) K/uL MPV (9.4-12.3) fL Immature Gran % (Auto) % Neut % (Auto) % Lymph % (Auto) % Edmonson % (Auto) % Eos % (Auto) % Baso % (Auto) % Neut # (Auto) (1.4-6.5) K/uL Lymph # (Auto) (1.2-3.4) K/uL Edmonson # (Auto) (0.24-0.82) K/uL Eos # (Auto) (0-0.50) K/uL Baso # (Auto) (0-0.2) K/uL Immature Gran # (Auto) (0.00-0.02) K/uL PT (9.0-12.0) Seconds INR (0.9-1.1) APTT (21.0-31.0) Seconds PTT Ratio Sodium 138 (136-145) mmol/L Potassium 4.4 (3.5-5.1) mmol/L Chloride 104 (98-107) mmol/L Carbon Dioxide 27 (21-32) mmol/L Anion Gap 7 (3-11) BUN 20 (6-23) mg/dl Creatinine 0.57 L (0.6-1.2) mg/dl Est Cr Clr Drug Dosing 66.2 ml/min Est GFR ( Amer) 97.3 ml/min Est GFR (Non-Af Amer) 83.9 ml/min BUN/Creatinine Ratio 35.1 H (10-20) Glucose 98 (70-99(Fasting)) mg/dl POC Glucose 97 (70-99) mg/dl Calcium 9.1 (8.5-10.1) mg/dl Magnesium 2.0 (1.7-2.4) mg/dl Total Bilirubin 0.6 (0.2-1.0) mg/dl AST 21 (13-39) U/L ALT 13 (7-52) U/L Alkaline Phosphatase 53 (34-104) U/L Troponin I High Sens 11.3 (0-14) pg/ml Total Protein 6.8 (6.0-8.3) gm/dl Albumin 4.1 (3.4-5.0) gm/dl Globulin 2.7 (2.5-4.0) gm/dl Albumin/Globulin Ratio 1.5 (0.9-2) SARS-CoV-2, RNA, NAAT (NEGATIVE) Blood Type A Positive Antibody Screen NEGATIVE Imaging Data Radiologist's Impression: Chest X-Ray 11/09/22 15:36 XR chest 1V portable CLINICAL HISTORY: neuro deficit, acute stroke suspected TECHNIQUE: Single frontal radiograph of the chest was obtained. Comparison: None available at the time of this dictation. FINDINGS: No lines and tubes are seen. Calcified aortic knob is seen. There is suggestion of emphysema. No evidence of pleural effusion or pneumothorax. IMPRESSION: No acute chest disease. ACT 112: Negative or not required by law. Electronically signed by: Timmy Mckinnon M.D. 11/09/2022 4:[address] 11/09/22 15:36 CT head/brain wo con CLINICAL HISTORY: 87 years-old Female with neuro deficit, acute stroke suspected . Acute strokelike symptoms. TECHNIQUE: Multiple axial CT images of the head were obtained without contrast. A dose lowering technique was utilized adhering to the principles of ALARA. COMPARISON: CTA had and neck of same day FINDINGS: No acute intracranial hemorrhage, midline shift, intra-axial mass, hydrocephalus, territorial ischemia or abnormal extra-axial collection. Hyperdense partially calcified mass in the superior quadrigeminal plate cistern within the falx cerebri measures approximately 4.3 x 3.3 x 3.5 cm causing mass effect upon the adjacent third and lateral ventricles, thalami and parietal lobes. Involutional changes. Moderate white matter hypodensities suggestive of chronic microvascular ischemic disease. Cerebral vascular calcifications. The calvarium is intact. The paranasal sinuses, mastoid air cells, and middle ear cavities are clear. IMPRESSION: 1. No acute intracranial abnormality. 2. 4.3 cm hyperdense partially calcified extra-axial mass involving the mid aspect of the falx cerebri extending into the superior aspect of the quadrigeminal plate cistern is suggestive of a probable meningioma causing local mass effect. As a precautionary measure, a nonemergent follow-up MRI of the brain with and without IV contrast may be considered. 3. Involutional changes with chronic microvascular ischemic disease. ACT 112: Negative or not required by law. The above report was generated using voice recognition software. It may contain grammatical, syntax or spelling errors. Electronically signed by: Reynaldo George M.D. 11/09/2022 4:00 PM Head CTA 11/09/22 15:36 CT ANGIOGRAM OF THE BRAIN; CT ANGIOGRAM OF THE NECK CLINICAL HISTORY: Right-sided weakness. Neurological deficit. Stroke like symptoms. COMPARISON STUDY: Unenhanced CT of the brain performed concurrently on . TECHNIQUE: Following the IV administration of 109 of Optiray 320, CT angiogram of the head and neck was performed from the aortic arch to the vertex. Images are reviewed in the axial, sagittal, and coronal planes. 3-D MIPS images are created and assessed. IV contrast was administered without complication. All measurements were calculated based on NASCET criteria. A dose lowering technique was utilized adhering to the principles of ALARA. CT DOSE: 1180.87 mGy.cm FINDINGS: Brain parenchyma: There is age-related involutional change noting moderate confluent subcortical and periventricular microangiopathic disease. There is no evidence of hemorrhage, midline shift, or acute territorial ischemia by CT criteria noting angiographic phase technique. There is an approximately 4 x 4 x 4 cm calcification-containing extra-axial mass identified in the posterior fossa along the tentorium cerebelli and falx. This causes localized mass effect. There is no evidence of obstructing hydrocephalus. No additional enhancing lesion is seen. The ventricles, sulci, and cisterns are prominent secondary to involutional change. Mitchell-white matter differentiation is preserved. No extra- axial fluid collection is seen. Thoracic aorta: There is atherosclerotic calcification of the thoracic aorta. Visualized portions of the thoracic aorta are normal in caliber. The aortic arch demonstrates standard 3-vessel anatomy. Right carotid arterial system: The right common carotid artery is widely patent, as are the right internal and external carotid arteries. Mild calcified plaque is seen in the carotid bulb. Left carotid arterial system: The left common carotid artery is widely patent, as are the left internal and external carotid arteries. Calcified plaque is seen in the carotid bulb. Vertebral arteries: The vertebral arteries are widely patent bilaterally noting left-sided dominance. Subclavian arteries: Widely patent bilaterally. Intracranial vasculature: There is atherosclerotic calcification of the cavernous carotid and vertebral arteries. The chilkoot of Vinson is developmentally complete. The internal carotid arteries are patent at the skull base, as are the anterior and middle cerebral arteries bilaterally. The vertebrobasilar system and posterior cerebral arteries are widely patent. The left vertebral artery is dominant. There is no aneurysm, high-grade stenosis, or focal vessel cut off seen throughout the intracranial circulation. Jugular veins: Patent bilaterally. Dural sinuses: Patent. 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 Partially visualized upper lobe lung parenchyma appears clear noting parenchymal scarring. Soft tissues: The visualized pharyngeal soft tissues are normal in appearance noting angiographic phase technique. The oropharyngeal airway appears widely patent. The thyroid gland is mildly enlarged and heterogeneous. The salivary glands are normal in appearance. No cervical lymphadenopathy is seen. Skeletal structures: The skeletal structures are osteopenic. The calvarium appears intact. The cervical spine is maintained noting mild multilevel spondylosis. No lytic or blastic lesion is seen. Orbits: The bony orbits are intact. Orbital contents are normal as visualized noting bilateral ocular lens implants. Sinuses and mastoids: The paranasal sinuses are clear. The mastoid air cells are well pneumatized. IMPRESSION: 1. There is no evidence of hemorrhage, midline shift, or acute territorial ischemia by CT criteria noting angiographic phase technique. 2. There is approximately 4 cm extra-axial mass lesion in the posterior fossa as detailed above. This is typical for a meningioma and causes localized mass effect. There is no evidence of obstructing hydrocephalus. 3. Unremarkable CT angiogram of the brain. 4. Unremarkable CT angiogram of the neck. ACT 112: Negative or not required by law. Electronically signed by: Nicko Love M.D. 11/09/2022 4:32 PM Neck CTA 11/09/22 15:36 CT ANGIOGRAM OF THE BRAIN; CT ANGIOGRAM OF THE NECK CLINICAL HISTORY: Right-sided weakness. Neurological deficit. Stroke like symptoms. COMPARISON STUDY: Unenhanced CT of the brain performed concurrently on 11/09/2022. TECHNIQUE: Following the IV administration of 109 of Optiray 320, CT angiogram of the head and neck was performed from the aortic arch to the vertex. Images are reviewed in the axial, sagittal, and coronal planes. 3-D MIPS images are cre ated and assessed. IV contrast was administered without complication. All measurements were calculated based on NASCET criteria. A dose lowering technique was utilized adhering to the principles of ALARA. CT DOSE: 1180.87 mGy.cm FINDINGS: Brain parenchyma: There is age-related involutional change noting moderate confluent subcortical and periventricular microangiopathic disease. There is no evidence of hemorrhage, midline shift, or acute territorial ischemia by CT criteria noting angiographic phase technique. There is an approximately 4 x 4 x 4 cm calcification-containing extra-axial mass identified in the posterior fossa along the tentorium cerebelli and falx. This causes localized mass effect. There is no evidence of obstructing hydrocephalus. No additional enhancing lesion is seen. The ventricles, sulci, and cisterns are prominent secondary to involutional change. Mitchell-white matter differentiation is preserved. No extra- axial fluid collection is seen. Thoracic aorta: There is atherosclerotic calcification of the thoracic aorta. Visualized portions of the thoracic aorta are normal in caliber. The aortic arch demonstrates standard 3-vessel anatomy. Right carotid arterial system: The right common carotid artery is widely patent, as are the right internal and external carotid arteries. Mild calcified plaque is seen in the carotid bulb. Left carotid arterial system: The left common carotid artery is widely patent, as are the left internal and external carotid arteries. Calcified plaque is seen in the carotid bulb. Vertebral arteries: The vertebral arteries are widely patent bilaterally noting left-sided dominance. Subclavian arteries: Widely patent bilaterally. Intracranial vasculature: There is atherosclerotic calcification of the cave rnous carotid and vertebral arteries. The chilkoot of [place]inson is developmentally complete. The internal carotid arteries are patent at the skull base, as are the anterior and middle cerebral arteries bilaterally. The vertebrobasilar system and posterior cerebral arteries are widely patent. The left vertebral artery is dominant. There is no aneurysm, high-grade stenosis, or focal vessel cut off seen throughout the intracranial circulation. Jugular veins: Patent bilaterally. Dural sinuses: Patent. 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 Partially visualized upper lobe lung parenchyma appears clear noting parenchymal scarring. Soft tissues: The visualized pharyngeal soft tissues are normal in appearance noting angiographic phase technique. The oropharyngeal airway appears widely patent. The thyroid gland is mildly enlarged and heterogeneous. The salivary glands are normal in appearance. No cervical lymphadenopathy is seen. Skeletal structures: The skeletal structures are osteopenic. The calvarium appears intact. The cervical spine is maintained noting mild multilevel spondylosis. No lytic or blastic lesion is seen. Orbits: The bony orbits are intact. Orbital contents are normal as visualized noting bilateral ocular lens implants. Sinuses and mastoids: The paranasal sinuses are clear. The mastoid air cells are well pneumatized. IMPRESSION: 1. There is no evidence of hemorrhage, midline shift, or acute territorial ischemia by CT criteria noting angiographic phase technique. 2. There is approximately 4 cm extra-axial mass lesion in the posterior fossa as detailed above. This is typical for a meningioma and causes localized mass effect. There is no evidence of obstructing hydrocephalus. 3. Unremarkable CT angiogram of the brain. 4. Unremarkable CT angiogram of the neck. ACT 112: Negative or not required by law. Electronically signed by: Nicko Love M.D. 11/09/2022 4:32 PM Pelvis X-Ray 11/09/22 15:36 XR pelvis 1-2V routine CLINICAL HISTORY: fall TECHNIQUE: A single frontal view of the pelvis was obtained. Comparison: None available at the time of this dictation. FINDINGS: There is no evidence of an acute fracture. Degenerative changes are seen in the hip joints and lumbar spine. No soft tissue abnormality is seen. Excretion of contrast is noted in the ureters and bladder likely due to prior contrast study. IMPRESSION: Degenerative changes without evidence of acute abnormality. ACT 112: Negative or not required by law. Electronically signed by: Timmy Mckinnon M.D. 11/09/2022 4:52 PM ECG Data Attestation: I personally reviewed and interpreted this ECG as follows: Indication: + weakness Rate (beats per minute): 80 Rhythm: + normal sinus ECG Intervals/blocks: + Normal CT and + Normal QT-c ECG ST segments: + Normal ST segments Additional Comments: QRS 78 MDM Narrative 1515:Per EMS the patient tried to get up at approximately 1:30 PM, 2 hours ago and felt like she could not move her right leg and then subsequently fell. Per EMS she was having dysarthria and aphasia and weakness in her right upper extremity as well as the right lower extremity. Code stroke called for the patient. 1535: The patient was evaluated in room B1. A complete history and physical exam was performed Cardiac monitoring: An order was placed for continuous cardiac monitoring. The monitor shows a rate of 80 with sinus rhythm 1543: Discussed the case with Dr. Shannon Rodriguez teleneurology who states he will evaluate the patient. 1550: CT of the head reviewed by me shows no ICH does show a large mass possibly the patient's meningioma. 1618: Vital signs stable. Patient remains with right upper extremity and lower extremity weakness, mild aphasia and dysarthria. Patient was evaluated by [facility] telestroke. Given the location of the tumor [facility] telestroke recommends against any TNKase. [facility] telestroke recommends the patient be treated with aspirin, Lipitor, magnesium 2 g over 1 hour, as well as 500 cc normal saline bolus followed by normal saline 100 cc/h. He recommends the patient be admitted to the hospital service for stroke work-up. [facility] hospitalist team will be contacted and patient be admitted to their service. Impression & Plan Acute CVA (cerebrovascular accident), Meningioma Discharge Plan Visit Data Chief Complaint: Stroke Alert Stated Complaint: stroke alert ED Provider: Neftali Erickson Discharge Problem: Acute CVA (cerebrovascular accident), Meningioma Patient Disposition: Admitted As Inpatient Forms Stand Alone Forms: [employer] Prescriptions Prescriptions: No Action No Known Home Medications Referrals Referrals: Juanis Lara, P.A. [Primary Care Provider] -
[2022-11-09] MEDS ORDERED: GADOBUTROL 65ML VIAL IV ONE (18:31)
--- NOTE | 2022-11-09 18:56 | Magnetic Resonance Report ---
MR brain wo/w con CLINICAL HISTORY: CVA, hx of meningioma TECHNIQUE: Multiplanar and multisequence MR images of the brain were obtained prior to and following administration of gadolinium contrast. Comparison: Comparison is made to CTA head and neck 11/09/2022 FINDINGS: There is restricted diffusion in the left thalamus with associated mild edema. Foci of T2 and FLAIR h yperintensity are noted in the paraventricular areas consistent with chronic small vessel ischemic di sease. Ex vacuo ventriculomegaly and sulcal enlargement is noted compatible with diffuse encephalomal acia. Redemonstration of a 29 x 36 mm extra-axial mass involving the falx cerebri extending into the superior aspect of the quadrigeminal plate cistern which demonstrates avid enhancement and calcific e lements. This does create mass effect on the adjacent lateral ventricles. There is no evidence of acu te intraparenchymal hemorrhage. No extra axial fluid collections are seen. The corpus callosum, pitui tary gland, and cerebellar tonsils appear grossly unremarkable. Flow voids of the major intracranial arterial vessels are identified. The imaged portions of the para nasal sinuses, mastoid air cells, and orbits are unremarkable. IMPRESSION: 1. Findings are concerning for left thalamic infarct. No evidence of hemorrhage. 2. Extra-axial mass involving the falx which may represent a meningioma. Local mass effect is noted. ACT 112: Negative or not required by law. Electronically signed by: Timmy Mckinnon M.D. 11/09/2022 6:53 PM
[2022-11-09] MEDS ORDERED: PHARMACIST DISCHARGE MED REC CONSULT PRN (19:11)
[2022-11-10] MEDS: SODIUM CHLORIDE 0.9% 500 ML IV SCH ×5 (04:38→21:11)
[2022-11-10 06:24] LABS: Basophils # (auto) 0.04 K/uL (0-0.2); Basophils % (auto) 0.7 %; Eosinophils # (auto) 0.09 K/uL (0-0.50); Eosinophils % (auto) 1.6 %; Hematocrit (blood only) 29.8 % (34.1-44.9); Hemoglobin 10.2 g/dl (12.0-16.0); Immature Granulocytes # (auto) 0.01 K/uL (0.00-0.02); Immature Granulocytes % (auto) 0.2 %; Lymphocytes # (auto) 1.12 K/uL (1.2-3.4); Lymphocytes % (auto) 19.4 %; Mean Corpuscular Hemoglobin 32.4 pg (25.0-34.0); Mean Corpuscular Hgb Conc 34.2 g/dL (32.0-36.0); Mean Corpuscular Volume 94.6 fL (80.0-100.0); Mean Platelet Volume 10.5 fL (9.4-12.3); Monocytes # (auto) 0.54 K/uL (0.24-0.82); Monocytes % (auto) 9.4 %; Neutrophils # (auto) 3.97 K/uL (1.4-6.5); Neutrophils % (auto) 68.7 %; Platelet Count 211 K/uL (130-400); RDW Coefficient of Variation 13.6 % (11.5-14.5); RDW Standard Deviation 47.1 fL (36.4-46.3); Red Blood Count 3.15 M/uL (3.93-5.22); White Blood Count 5.77 K/ul (4.8-10.8)
[2022-11-10 07:19] LABS: BUN Creatinine Ratio 24.1 (10-20); Chol HDL Ratio 3.6 (0-5); Creatinine Clr Calc Pharmacy 67.3 ml/min; Est GFR (Non-African American) 85.4 ml/min; Potassium 3.6 mmol/L (3.5-5.1)
[2022-11-10 07:48] LABS: Estimated Average Glucose 114 mg/dl; Hemoglobin A1C 5.6 % (4.5-5.6)
[2022-11-10] MEDS ORDERED: ASPIRIN 300 MG SUPP PR SCH (09:00)
--- NOTE | 2022-11-10 09:36 | Electrocardiogram Report ---
Test Reason : Blood Pressure : / mmHG Vent. Rate : 080 BPM Atrial Rate : 080 BPM P-R Int : 170 ms QRS Dur : 078 ms QT Int : 420 ms P-R-T Axes : 067 068 064 degrees QTc Int : 484 ms Poor data quality, interpretation may be adversely affected Normal sinus rhythm Possible Left atrial enlargement No previous ECGs available Confirmed by Jhonny Alexandra ([id number]) on 11/10/2022 9:36:34 AM Referred By: REFERRED SELF Confirmed By:Luke Alexandra
[2022-11-10] MEDS: ATORVASTATIN 40 MG TAB PO SCH (09:52)
[2022-11-10] MEDS: ASPIRIN 81 MG ECTAB PO SCH (09:54)
--- NOTE | 2022-11-10 11:26 | Hospitalist Progress Note ---
Date of Service November 10, 2022 Assessment & Plan (1) Acute CVA (cerebrovascular accident): (2) Meningioma: (3) Weakness of right upper extremity: (4) Dysarthria: Plan: - Admitted to PCU - hx of Meningioma - known since 2014 and previously followed with Dr. Rosales with neurology as outpatient, was nonoperable, has not followed with neurology since this physician retired years ago. Pt notes intermittent visual disturbances every few months - Teleneurology with Jennifer was contacted by the ER. Aspirin and atorvastatin started on admission - likely small vessel lacunar infarct involving a subcortical branch of the internal capsule of the thalamus region which are commonly associated with stuttering symptoms. Allow permissive hypertension. - Add Plavix -Echo pending - pt should have ASA + plavix for 3 weeks then continue w/ASA alone -oupt cardiac monitoring for arrhythmia recommended -MRI brain MPRESSION: 1. Findings are concerning for left thalamic infarct. No evidence of hemorrhage. 2. Extra-axial mass involving the falx which may represent a meningioma. Local mass effect is noted. - Neurology consulted - Dr. Truong - appreciate their input - PT/OT consults placed DVT ppx: teds, scds CODE: DNR/DNI Dispo: From home, lives alone, PT/OT consults, likely to remain in the hospital x 1-2 days. Admission and Anticipated Discharge Date Admission Date: November 09, 2022 Subjective Pt seen and examined for follow up of acute CVA Sitting in chair in no acute distress Pt's daughter at the bedside Continues to have R -sided weakness Denies any chest pain, palpitation, dizziness and shortness of breath Review of Systems Review of Systems: All systems reviewed & are unremarkable except as noted in Subjective Physical Exam Physical Exam: General: elderly F, awake, alert, no apparent distress Head: Normocephalic, atraumatic ENT: PERRL, EOMI, no pharyngeal exudate, mucous membranes moist Chest: Clear to auscultation, on room air, no adventitious breath sounds Cardiac: Regular rate and rhythm, + opening click, no murmur Abdominal: NABS x 4 quadrants, soft, nondistended, nontender to palpation, no rebound or guarding Extremities: no lower extremity edema or erythema Psych: Normal mood and affect Neuro: AAO x 3, CN II-XII intact. RUE and RLE weakness noted however pt able to move RLE. RUE - minimal movement. + Dysarthria Results & Data Results & Data ([facility]) Vital Signs (Past 12 Hours) Vital Signs Temp Pulse Resp BP Pulse Ox O2 Del Method 11/10/22 08:04 37 C 76 17 157/84 H 95 Room Air 11/10/22 03:41 36.7 C 73 18 137/69 96 Room Air Laboratory Results 11/10/22 11/10/22 11/10/22 Range/Units 05:37 05:37 05:37 WBC 5.77 (4.8-10.8) K/ul RBC 3.15 L (3.93-5.22) M/uL Hgb 10.2 L (12.0-16.0) g/dl Hct 29.8 L (34.1-44.9) % MCV 94.6 (80.0-100.0) fL MCH 32.4 (25.0-34.0) pg MCHC 34.2 (32.0-36.0) g/dL RDW Std Deviation 47.1 H (36.4-46.3) fL RDW Coeff of Valeriy 13.6 (11.5-14.5) % Plt Count 211 (130-400) K/uL MPV 10.5 (9.4-12.3) fL Immature Gran % (Auto) 0.2 % Neut % (Auto) 68.7 % Lymph % (Auto) 19.4 % [place] % (Auto) 9.4 % Eos % (Auto) 1.6 % Baso % (Auto) 0.7 % Neut # (Auto) 3.97 (1.4-6.5) K/uL Lymph # (Auto) 1.12 L (1.2-3.4) K/uL [place] # (Auto) 0.54 (0.24-0.82) K/uL Eos # (Auto) 0.09 (0-0.50) K/uL Baso # (Auto) 0.04 (0-0.2) K/uL Immature Gran # (Auto) 0.01 (0.00-0.02) K/uL PT (9.0-12.0) Seconds INR (0.9-1.1) APTT (21.0-31.0) Seconds PTT Ratio Sodium 140 (136-145) mmol/L Potassium 3.6 (3.5-5.1) mmol/L Chloride 110 H (98-107) mmol/L Carbon Dioxide 25 (21-32) mmol/L Anion Gap 5 (3-11) BUN 13 (6-23) mg/dl Creatinine 0.54 L (0.6-1.2) mg/dl Est Cr Clr Drug Dosing 67.3 ml/min Est GFR ( Amer) 99.0 ml/min Est GFR (Non-Af Amer) 85.4 ml/min BUN/Creatinine Ratio 24.1 H (10-20) Glucose 90 (70-99(Fasting)) mg/dl POC Glucose (70-99) mg/dl Estimat Average Glucose 114 mg/dl Hemoglobin A1c 5.6 (4.5-5.6) % Calcium 8.0 L (8.5-10.1) mg/dl Magnesium (1.7-2.4) mg/dl Total Bilirubin (0.2-1.0) mg/dl AST (13-39) U/L ALT (7-52) U/L Alkaline Phosphatase (34-104) U/L Troponin I High Sens (0-14) pg/ml Total Protein (6.0-8.3) gm/dl Albumin (3.4-5.0) gm/dl Globulin (2.5-4.0) gm/dl Albumin/Globulin Ratio (0.9-2) Triglycerides 89 (0-150) mg/dl Cholesterol 221 H (0-200) mg/dl LDL Cholesterol, Calc 141 mg/dl VLDL Cholesterol, Calc 18 (0-30) mg/dl HDL Cholesterol 62 mg/dl Cholesterol/HDL Ratio 3.6 (0-5) SARS-CoV-2, RNA, NAAT (NEGATIVE) Blood Type Antibody Screen 11/09/22 11/09/22 11/09/22 Range/Units 16:34 15:52 15:30 WBC (4.8-10.8) K/ul RBC (3.93-5.22) M/uL Hgb (12.0-16.0) g/dl Hct (34.1-44.9) % MCV (80.0-100.0) fL MCH (25.0-34.0) pg MCHC (32.0-36.0) g/dL RDW Std Deviation (36.4-46.3) fL RDW Coeff of Valeriy (11.5-14.5) % Plt Count (130-400) K/uL MPV (9.4-12.3) fL Immature Gran % (Auto) % Neut % (Auto) % Lymph % (Auto) % [place] % (Auto) % Eos % (Auto) % Baso % (Auto) % Neut # (Auto) (1.4-6.5) K/uL Lymph # (Auto) (1.2-3.4) K/uL [place] # (Auto) (0.24-0.82) K/uL Eos # (Auto) (0-0.50) K/uL Baso # (Auto) (0-0.2) K/uL Immature Gran # (Auto) (0.00-0.02) K/uL PT (9.0-12.0) Seconds INR (0.9-1.1) APTT (21.0-31.0) Seconds PTT Ratio Sodium 138 (136-145) mmol/L Potassium 4.4 (3.5-5.1) mmol/L Chloride 104 (98-107) mmol/L Carbon Dioxide 27 (21-32) mmol/L Anion Gap 7 (3-11) BUN 20 (6-23) mg/dl Creatinine 0.57 L (0.6-1.2) mg/dl Est Cr Clr Drug Dosing 66.2 ml/min Est GFR ( Amer) 97.3 ml/min Est GFR (Non-Af Amer) 83.9 ml/min BUN/Creatinine Ratio 35.1 H (10-20) Glucose 98 (70-99(Fasting)) mg/dl POC Glucose 97 (70-99) mg/dl Estimat Average Glucose mg/dl Hemoglobin A1c (4.5-5.6) % Calcium 9.1 (8.5-10.1) mg/dl Magnesium 2.0 (1.7-2.4) mg/dl Total Bilirubin 0.6 (0.2-1.0) mg/dl AST 21 (13-39) U/L ALT 13 (7-52) U/L Alkaline Phosphatase 53 (34-104) U/L Troponin I High Sens 11.3 (0-14) pg/ml Total Protein 6.8 (6.0-8.3) gm/dl Albumin 4.1 (3.4-5.0) gm/dl Globulin 2.7 (2.5-4.0) gm/dl Albumin/Globulin Ratio 1.5 (0.9-2) Triglycerides (0-150) mg/dl Cholesterol (0-200) mg/dl LDL Cholesterol, Calc mg/dl VLDL Cholesterol, Calc (0-30) mg/dl HDL Cholesterol mg/dl Cholesterol/HDL Ratio (0-5) SARS-CoV-2, RNA, NAAT (NEGATIVE) Blood Type A Positive Antibody Screen NEGATIVE 11/09/22 11/09/22 11/09/22 Range/Units 15:30 15:30 14:38 WBC 5.67 (4.8-10.8) K/ul RBC 3.69 L (3.93-5.22) M/uL Hgb 12.0 (12.0-16.0) g/dl Hct 35.5 (34.1-44.9) % MCV 96.2 (80.0-100.0) fL MCH 32.5 (25.0-34.0) pg MCHC 33.8 (32.0-36.0) g/dL RDW Std Deviation 47.4 H (36.4-46.3) fL RDW Coeff of Valeriy 13.2 (11.5-14.5) % Plt Count 247 (130-400) K/uL MPV 10.7 (9.4-12.3) fL Immature Gran % (Auto) 0.4 % Neut % (Auto) 82.5 % Lymph % (Auto) 9.7 % [place] % (Auto) 6.5 % Eos % (Auto) 0.4 % Baso % (Auto) 0.5 % Neut # (Auto) 4.68 (1.4-6.5) K/uL Lymph # (Auto) 0.55 L (1.2-3.4) K/uL [place] # (Auto) 0.37 (0.24-0.82) K/uL Eos # (Auto) 0.02 (0-0.50) K/uL Baso # (Auto) 0.03 (0-0.2) K/uL Immature Gran # (Auto) 0.02 (0.00-0.02) K/uL PT 10.7 (9.0-12.0) Seconds INR 1.0 (0.9-1.1) APTT 26.0 (21.0-31.0) Seconds PTT Ratio 0.9 Sodium (136-145) mmol/L Potassium (3.5-5.1) mmol/L Chloride (98-107) mmol/L Carbon Dioxide (21-32) mmol/L Anion Gap (3-11) BUN (6-23) mg/dl Creatinine (0.6-1.2) mg/dl Est Cr Clr Drug Dosing ml/min Est GFR ( Amer) ml/min Est GFR (Non-Af Amer) ml/min BUN/Creatinine Ratio (10-20) Glucose (70-99(Fasting)) mg/dl POC Glucose (70-99) mg/dl Estimat Average Glucose mg/dl Hemoglobin A1c (4.5-5.6) % Calcium (8.5-10.1) mg/dl Magnesium (1.7-2.4) mg/dl Total Bilirubin (0.2-1.0) mg/dl AST (13-39) U/L ALT (7-52) U/L Alkaline Phosphatase (34-104) U/L Troponin I High Sens (0-14) pg/ml Total Protein (6.0-8.3) gm/dl Albumin (3.4-5.0) gm/dl Globulin (2.5-4.0) gm/dl Albumin/Globulin Ratio (0.9-2) Triglycerides (0-150) mg/dl Cholesterol (0-200) mg/dl LDL Cholesterol, Calc mg/dl VLDL Cholesterol, Calc (0-30) mg/dl HDL Cholesterol mg/dl Cholesterol/HDL Ratio (0-5) SARS-CoV-2, RNA, NAAT NEGATIVE (NEGATIVE) Blood Type Antibody Screen Medications Administered Current Inpatient Medications Aspirin (Aspirin 81 Mg Ectab) 81 mg PO [facility] Stop: 12/10/22 08:59 Last Admin: 11/10/22 09:54 Dose: 81 mg Atorvastatin Calcium (Atorvastatin 40 Mg Tab) 80 mg PO [facility] Stop: 12/10/22 08:59 Last Admin: 11/10/22 09:52 Dose: 80 mg Sodium Chloride (Nss) 500 mls @ 100 mls/hr IV .Q5H [facility] Stop: 12/09/22 16:29 Last Admin: 11/10/22 09:54 Dose: 100 mls/hr Miscellaneous Information (Pharmacist Discharge Med Rec Consult) 1 each N/A UD PRN PRN Reason: Consult Stop: 12/09/22 19:10
--- NOTE | 2022-11-10 12:28 | Neurology Consultation ---
Date of Consultation November 10, 2022 Assessment & Plan (1) Acute CVA (cerebrovascular accident): Suspect thalamic capsular stroke based on presentation, and MRI findings. Unclear if this is a true small vessel event, or small embolus. Blood pressure was high on presentation, has come down gradually, apparently without intervention. Head and neck vessels apparently patent. We will continue permissive hypertension for now, try to avoid sudden blood pressure drops, but over the coming days, blood pressure can gradually be brought back to the normal range for age. Awaiting surface echocardiogram. In the outpatient setting, consideration should be given to 3 weeks cardiac rhythm monitoring to rule out occult atrial dysrhythmia. Not clear to me at present that the meningioma by itself, with no history of bleeding, would be a contraindication to anticoagulation should this patient be found to have atrial fibrillation or flutter. Continue PT, OT, ST, and rehab eval. Dual antiplatelet therapy for 3 weeks, then transition to aspirin monotherapy. Optimal blood pressure control going forward after that. Statin if tolerated. Discussed in detail with patient and her daughter at bedside. History of Present Illness Reason for Consultation: Stroke Attending Physician: Peewee Noyola MD History of Present Illness History comes from patient, her daughter, and notes. Yesterday while at home alone, patient noticed weakness of her right side. She went to get up and had a controlled fall onto the floor. Apparently was able to call for help, but her speech was garbled. Never had anything similar happen in the past. Does not get headaches. Was seen in the ER by teleneurology, thrombolysis was not recommended due to the patient's meningioma. Daughter says patient is about the same today as she was yesterday, still noticeably weak on the right, significant language deficits. Was not taking aspirin at home, there was no indication Allergies Allergy/AdvReac Type Severity Reaction Status Date / Time No Known Allergies Allergy Verified 11/09/22 16:35 Home Medications Medication Instructions Recorded Confirmed Type No Known Home Medications 11/09/22 11/09/22 History Patient History Medical History Hx of small bowel obstruction S/p lysis of adhesions HX: breast cancer Meningioma Surgical History Hx of bilateral mastectomy Family History Brother Cancer throat cancer Social History Smoking Status: Never smoker Second Hand Exposure: Yes; Do You Dip or Chew Tobacco: No; Tobacco Cessation Education Requested by Patient: No Hx Alcohol Use: No Hx Substance Use: No Preferred Language: Congolese Communication Ability: Effective Temperature Regulator Required: No Beliefs That Will Affect Care: None Current Living Situation: Alone Other Information That Helps Us Care for You: No Feels Safe at Home: Yes Safety Concerns: Feels Safe At This Time Assistive Devices: Denture - Upper Review of Systems Review of Systems: Unobtainable Physical Exam Physical Exam: Appears well, sitting in a chair. Awake, alert, attentive. Attends to both sides. Spontaneous speech is a bit slow and stammering, often is intelligible but sometimes not. Perseverates occasionally. No paraphasic errors. Seems to have reasonably intact comprehension. Normal ocular movements. No definite facial asymmetry. Right arm and leg are noticeably weak, the arm somewhat more than the leg. Pinch is nonexistent on the right. Cannot raise her right arm out of her lap to any great degree. Right arm extension and flexion with slight residual power. Can flex slightly at the right hip. Can wiggle toes weakly in the right leg. No obvious ataxia or tremor. Results & Data ([facility]) Vital Signs (Past 12 Hours) Vital Signs Temp Pulse Resp BP Pulse Ox O2 Del Method 11/10/22 12:07 36.7 C 92 H 17 150/74 H 95 Room Air 11/10/22 08:04 37 C 76 17 157/84 H 95 Room Air 11/10/22 03:41 36.7 C 73 18 137/69 96 Room Air
[2022-11-10] MEDS: CLOPIDOGREL BISULFATE 75 MG TAB PO SCH (14:12)
--- NOTE | 2022-11-10 14:19 | Pharmacy Report ---
- Date of Service November 10, 2022 - Pharmacy CVA/TIA Medication Review Medications to Prevent Stroke handout has been added to the patients discharge packet. Antiplatelet(s) * Aspirin 81mg + Clopidogrel 75mg, Dual antiplatelet therapy for 3 weeks, then transition to aspirin monotherapy Cholesterol * High intensity statin: atorvastatin 80 mg daily DVT Prophylaxis * SCD knee Therapeutic Anticoagulation * No history of Afib/Aflutter noted Type 2 Diabetes * Patient does not have T2DM
[2022-11-11] MEDS: SODIUM CHLORIDE 0.9% 500 ML IV SCH ×3 (02:33→12:37)
[2022-11-11 06:23] LABS: Basophils # (auto) 0.04 K/uL (0-0.2); Basophils % (auto) 0.8 %; Eosinophils # (auto) 0.11 K/uL (0-0.50); Eosinophils % (auto) 2.1 %; Hematocrit (blood only) 30.6 % (34.1-44.9); Hemoglobin 10.4 g/dl (12.0-16.0); Immature Granulocytes # (auto) 0.01 K/uL (0.00-0.02); Immature Granulocytes % (auto) 0.2 %; Lymphocytes # (auto) 1.08 K/uL (1.2-3.4); Lymphocytes % (auto) 20.6 %; Mean Corpuscular Hemoglobin 32.1 pg (25.0-34.0); Mean Corpuscular Volume 94.4 fL (80.0-100.0); Mean Platelet Volume 10.4 fL (9.4-12.3); Monocytes # (auto) 0.54 K/uL (0.24-0.82); Monocytes % (auto) 10.3 %; Neutrophils # (auto) 3.47 K/uL (1.4-6.5); Platelet Count 189 K/uL (130-400); RDW Coefficient of Variation 13.6 % (11.5-14.5); RDW Standard Deviation 47.3 fL (36.4-46.3); Red Blood Count 3.24 M/uL (3.93-5.22); White Blood Count 5.25 K/ul (4.8-10.8)
[2022-11-11 06:50] LABS: BUN Creatinine Ratio 19.1 (10-20); Creatinine Clr Calc Pharmacy 77.3 ml/min; Est GFR (African American) 103.7 ml/min; Est GFR (Non-African American) 89.4 ml/min; Potassium 3.5 mmol/L (3.5-5.1)
--- NOTE | 2022-11-11 07:38 | Ultrasound Report ---
US venous doppler UE RT CLINICAL HISTORY: Rt arm pain and edema PROCEDURE: Right upper extremity real-time compression venous ultrasound with Duplex and Color Dopple r imaging. Comparison: None available at the time of this dictation. FINDINGS: Utilizing real-time ultrasonic imaging multiple real time high-resolution ultrasonic images of the de ep venous system were performed from the forearm through the subclavian vein including evaluation of the jugular vein. Compression real time ultrasonic imaging was performed in addition to color Dopple r imaging and duplex Doppler ultrasound with velocity spectral profile analysis. There is normal compressibility of the deep venous system from the forearm through the subclavian vei n. Normal vascular flow is currently identified. No evidence of superficial thrombosis is identified. Impression: No evidence of deep venous thrombus. ACT 112: Negative or not required by law. Electronically signed by: Timmy Mckinnon M.D. 11/11/2022 7:37 AM
[2022-11-11] MEDS: ASPIRIN 81 MG ECTAB PO SCH (08:53)
[2022-11-11] MEDS: CLOPIDOGREL BISULFATE 75 MG TAB PO SCH (08:53)
[2022-11-11] MEDS ORDERED: ACETAMINOPHEN 325 MG TAB PO PRN (09:00)
[2022-11-11] MEDS ORDERED: BACLOFEN 10 MG TAB PO ONE (09:01)
[2022-11-11] MEDS: GABAPENTIN 100 MG CAP PO SCH ×2 (10:19→15:53)
[2022-11-11] MEDS: ATORVASTATIN 40 MG TAB PO SCH (10:19)
[2022-11-11] MEDS ORDERED: POTASSIUM CHLORIDE PWD 20 MEQ PACK PO ONE (12:45)
--- NOTE | 2022-11-11 13:32 | XRay Report ---
XR hand RT 2V HISTORY: 87 years-old Female thumb pain edema chronic right hand pain COMPARISON: None TECHNIQUE: 2 views the right hand FINDINGS: Demineralized appearance the bones. 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 Moderate osteoarthritis of the first metacarpal phalangeal joint. 2 mm negative ulnar variance. No ac [place] fracture, dislocation or osseous erosion. Mild diffuse soft tissue prominence. IMPRESSION: 1. No acute fracture or dislocation. 2. 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 ACT 112: Negative or not required by law. The above report was generated using voice recognition software. It may contain grammatical, syntax o r spelling errors. Electronically signed by: Reynaldo George M.D. 11/11/2022 1:31 PM
--- NOTE | 2022-11-11 14:04 | Hospitalist Progress Note ---
Date of Service November 11, 2022 Assessment & Plan (1) Acute CVA (cerebrovascular accident): (2) Meningioma: (3) Weakness of right upper extremity: (4) Dysarthria: Plan: L thalamic infarct - hx of Meningioma - known since 2014 and previously followed with Dr. Rosales with neurology as outpatient, was nonoperable, has not followed with neurology since this physician retired years ago. Pt notes intermittent visual disturbances every few months - Teleneurology with [facility] was contacted by the ER. Aspirin and atorvastatin started on admission - likely small vessel lacunar infarct involving a subcortical branch of the internal capsule of the thalamus region which are commonly associated with stuttering symptoms. Allow permissive hypertension. - Added Plavix - Echo obtained - pt to continue ASA + plavix for 3 weeks then continue w/ASA alone - oupt cardiac monitoring for arrhythmia recommended -MRI brain IMPRESSION: 1. Findings are concerning for left thalamic infarct. No evidence of hemorrhage. 2. Extra-axial mass involving the falx which may represent a meningioma. Local mass effect is noted. - Neurology consulted - Dr. Truong - appreciate their input - PT/OT consults placed R thumb pain and edema - Doppler obtained - no DVT - R hand XR ordered DVT ppx: teds, scds CODE: DNR/DNI Dispo: From home, lives alone, PT/OT consults, likely to remain in the hospital x 1-2 days. Admission and Anticipated Discharge Date Admission Date: November 09, 2022 Subjective Pt seen and examined for follow up of acute CVA Sitting in chair in no acute distress Pt's daughter at the bedside Continues to have R -sided weakness, also reports R thumb pain Doppler of RUE obtained - negat. for DVT Denies any chest pain, palpitation, dizziness and shortness of breath Review of Systems Review of Systems: All systems reviewed & are unremarkable except as noted in Subjective Physical Exam Physical Exam: General: elderly F, awake, alert, no apparent distress Head: Normocephalic, atraumatic ENT: PERRL, EOMI, no pharyngeal exudate, mucous membranes moist Chest: Clear to auscultation, on room air, no adventitious breath sounds Cardiac: Regular rate and rhythm, + opening click, no murmur Abdominal: NABS x 4 quadrants, soft, nondistended, nontender to palpation, no rebound or guarding Extremities: no lower extremity edema or erythema, R hand edema Psych: Normal mood and affect Neuro: AAO x 3, RUE and RLE weakness noted however pt able to move RLE. RUE - minimal movement. + Dysarthria Results & Data Results & Data ([facility]) Vital Signs (Past 12 Hours) Vital Signs Temp Pulse Pulse Resp BP BP Pulse Ox 11/11/22 08:00 74 11/11/22 11:22 36.5 C 73 19 152/76 H 99 11/11/22 07:29 36.7 C 68 19 167/78 H 93 11/11/22 03:45 36.6 C 93 H 20 174/71 H 93 O2 Del Method 11/11/22 08:00 11/11/22 11:22 Room Air 11/11/22 07:29 Room Air 11/11/22 03:45 Room Air Laboratory Results 11/11/22 11/11/22 Range/Units 05:59 05:59 WBC 5.25 (4.8-10.8) K/ul RBC 3.24 L (3.93-5.22) M/uL Hgb 10.4 L (12.0-16.0) g/dl Hct 30.6 L (34.1-44.9) % MCV 94.4 (80.0-100.0) fL MCH 32.1 (25.0-34.0) pg MCHC 34.0 (32.0-36.0) g/dL RDW Std Deviation 47.3 H (36.4-46.3) fL RDW Coeff of Valeriy 13.6 (11.5-14.5) % Plt Count 189 (130-400) K/uL MPV 10.4 (9.4-12.3) fL Immature Gran % (Auto) 0.2 % Neut % (Auto) 66.0 % Lymph % (Auto) 20.6 % [place] % (Auto) 10.3 % Eos % (Auto) 2.1 % Baso % (Auto) 0.8 % Neut # (Auto) 3.47 (1.4-6.5) K/uL Lymph # (Auto) 1.08 L (1.2-3.4) K/uL [place] # (Auto) 0.54 (0.24-0.82) K/uL Eos # (Auto) 0.11 (0-0.50) K/uL Baso # (Auto) 0.04 (0-0.2) K/uL Immature Gran # (Auto) 0.01 (0.00-0.02) K/uL Sodium 142 (136-145) mmol/L Potassium 3.5 (3.5-5.1) mmol/L Chloride 112 H (98-107) mmol/L Carbon Dioxide 25 (21-32) mmol/L Anion Gap 5 (3-11) BUN 9 (6-23) mg/dl Creatinine 0.47 L (0.6-1.2) mg/dl Est Cr Clr Drug Dosing 77.3 ml/min Est GFR ( Amer) 103.7 ml/min Est GFR (Non-Af Amer) 89.4 ml/min BUN/Creatinine Ratio 19.1 (10-20) Glucose 94 (70-99(Fasting)) mg/dl Calcium 8.0 L (8.5-10.1) mg/dl Medications Administered Current Inpatient Medications Acetaminophen (Acetaminophen 325 Mg Tab) 650 mg PO Q4H PRN PRN Reason: Pain Stop: 12/11/22 08:59 Aspirin (Aspirin 81 Mg Ectab) 81 mg PO [facility] Stop: 12/10/22 08:59 Last Admin: 11/11/22 08:53 Dose: 81 mg Atorvastatin Cal[facility] ([facility] 40 Mg Tab) [facility] [place]: 12/10/22 08:59 Last Admin: 11/11/22 10:19 Dose: 80 mg Clopidogrel Bisulfate (Clopidogrel Bisulfate 75 Mg Tab) [facility] [place]: 12/10/22 12:59 Last Admin: 11/11/22 08:53 Dose: 75 mg Gabapentin (Gabapentin 100 Mg Cap) 100 mg PO TID [facility] Stop: 12/11/22 08:59 Last Admin: 11/11/22 10:19 Dose: 100 mg Sodium Chloride (Nss) 500 mls @ 100 mls/hr IV .Q5H [facility] Stop: 12/09/22 16:29 Last Admin: 11/11/22 12:37 Dose: Not Given
--- NOTE | 2022-11-11 17:50 | Neurology Progress Note ---
Date of Service November 11, 2022 Assessment & Plan (1) Acute CVA (cerebrovascular accident): Plan: Patient with left thalamic capsular infarct, unclear if embolic or small vessel in origin. Blood pressure was high on presentation. Head and neck vessels patent. Surface echo with no clear embolic tendency. Continue dual antiplatelet therapy for total of 3 weeks, then transition back to aspirin alone. Statin if tolerated. Patient with large midline meningioma, but not clear to me that this is a contraindication to anticoagulation long-term. Unless long-term anticoagulation is contraindicated for some other reason, would still recommend 3 weeks outpatient cardiac rhythm monitoring, rule out atrial dysrhythmia. Patient now with pain at the base of her right thumb associated with some swelling and redness. This would not be due to the stroke, or even the edema of the patient's arm from disuse. Consider evaluation for infectious, thrombotic, or traumatic explanation. No indication for baclofen or Neurontin from our end at present. We will sign off. Please reconsult for further questions. Admission and Anticipated Discharge Date Admission Date: November 09, 2022 Subjective Patient feels about the same except having pain around her right thumb. She does not think she injured it, at least as far she remembers. Is gotten swollen and very tender. Her neurologic symptoms are unchanged, the still somewhat frustrated by her trouble talking, and significant weakness of right side. No headache. Review of Systems Review of Systems: No changes. Physical Exam Physical Exam: Awake, alert, attentive. Does not appear to be in distress. Speech is slightly slurred and stammers on occasion, with occasional word search, but she is able to express her thoughts appropriately with effort. Comprehension seems excellent. She is oriented. Very mild right facial weakness. Right arm and right leg still is significantly weakened, but unchanged from yesterday. She can barely pinch with the right hand. She can wiggle toes and slightly rolled the right leg in and out. The thenar aspect of the right hand is significantly swollen, and she is quite tender at the base of the right thumb. Slight reddening of the skin over the thenar eminence and second metacarpal. Results & Data ([facility]) Vital Signs (Past 12 Hours) Vital Signs Temp Pulse Pulse Resp BP BP Pulse Ox 11/11/22 16:16 36.8 C 71 19 142/66 H 96 11/11/22 08:00 74 11/11/22 11:22 36.5 C 73 19 152/76 H 99 11/11/22 07:29 36.7 C 68 19 167/78 H 93 O2 Del Method 11/11/22 16:16 Room Air 11/11/22 08:00 11/11/22 11:22 Room Air 11/11/22 07:29 Room Air
[2022-11-12 07:41] LABS: Basophils # (auto) 0.04 K/uL (0-0.2); Basophils % (auto) 0.7 %; Eosinophils # (auto) 0.15 K/uL (0-0.50); Eosinophils % (auto) 2.5 %; Hemoglobin 10.6 g/dl (12.0-16.0); Immature Granulocytes # (auto) 0.01 K/uL (0.00-0.02); Immature Granulocytes % (auto) 0.2 %; Lymphocytes % (auto) 20.1 %; Mean Corpuscular Hemoglobin 32.1 pg (25.0-34.0); Mean Corpuscular Hgb Conc 34.2 g/dL (32.0-36.0); Mean Corpuscular Volume 93.9 fL (80.0-100.0); Mean Platelet Volume 10.3 fL (9.4-12.3); Monocytes # (auto) 0.57 K/uL (0.24-0.82); Monocytes % (auto) 9.5 %; Platelet Count 189 K/uL (130-400); RDW Coefficient of Variation 13.5 % (11.5-14.5); RDW Standard Deviation 46.8 fL (36.4-46.3); White Blood Count 5.97 K/ul (4.8-10.8)
[2022-11-12 08:02] LABS: BUN Creatinine Ratio 21.2 (10-20); Calcium 8.1 mg/dl (8.5-10.1); Creatinine Clr Calc Pharmacy 69.9 ml/min; Est GFR (African American) 100.3 ml/min; Est GFR (Non-African American) 86.5 ml/min; Potassium 3.8 mmol/L (3.5-5.1)
[2022-11-12] MEDS: CLOPIDOGREL BISULFATE 75 MG TAB PO SCH (08:48)
[2022-11-12] MEDS: ASPIRIN 81 MG ECTAB PO SCH (08:48)
[2022-11-12] MEDS: ATORVASTATIN 40 MG TAB PO SCH (08:48)
--- NOTE | 2022-11-12 15:33 | Hospitalist Progress Note ---
Date of Service November 12, 2022 Assessment & Plan (1) Acute CVA (cerebrovascular accident): (2) Meningioma: (3) Weakness of right upper extremity: (4) Dysarthria: Plan: Present on admission with dysarthria and right side weakness CT head on admission showed 4.3 cm hyperdense partially calcified extra-axial mass involving the mid aspect of the falx cerebri extending into the superior aspect of the quadrigeminal plate cistern is suggestive of a probable meningioma causing local mass effect. Teleneurology with Jennifer was contacted by the ER. TPA was not given due to the increased bleeding risk associated with meningioma. Meningioma is known since 2015 and previously followed with Dr. Rosales with neurology as outpatient, was nonoperable, has not followed with neurology since this physician retired years ago. Pt notes intermittent visual disturbances every few months as per HPI, none today. Admitting team discussed case with Dr. Casey, neurologist that recommended statin and aspirin CTA head/Neck showed no evidence of hemorrhage, midline shift, or acute territorial ischemia . approximately 4 cm extra-axial mass lesion in the posterior fossa as detailed above. This is typical for a meningioma and causes localized mass effect. There is no evidence of obstructing hydrocephalus. Brain MRI showed findings are concerning for left thalamic infarct. No evidence of hemorrhage. Extra-axial mass involving the falx which may represent a meningioma. Local mass effect is noted. ECHO showed no evidence of shunting. LV systolic function is normal with EF 60- 65% Neuro pn board recommended dual antiplatelet therapy with Plavix and aspirin for 3 weeks, then after 21 days to continue aspirin alone Continue statin daily PT/OT recommended inpatient rehab Continue physical and occupation therapy Pt will need to arrange for Zio patch outpatient fall precaution Right Thumb pain Xray of hand showed No acute fracture or dislocation. 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 Doppler of RUE showed No evidence of deep venous thrombus. DVT ppx: teds, scds, aspirin 81/ plavix mg daily CODE: DNR/DNI Disposition Waiting for placement to rehab Admission and Anticipated Discharge Date Admission Date: November 09, 2022 Subjective Pt was seen and examined for follow up of acute CVA Sitting in chair with no acute distress Pt said that she feels ok She said that she is still having weakness in right side Denies any chest pain, palpitation, dizziness and SOB Review of Systems Review of Systems: All systems reviewed & are unremarkable except as noted in Subjective Physical Exam Physical Exam: General- No acute distress Head- atraumatic Eyes- PERRL, EOMI, ENT- oropharynx clear Neck- supple, no JVD Lungs- clear to auscultation Heart- regular rhythm; no murmur Abdomen- normal bowel sounds, soft, nontender Extremities- no calf tenderness Neuro- alert, oriented, PERRL, EOMI; no facial palsy; no dysarthria, RUE weakness Skin- warm & dry Results & Data Results & Data ([facility]) Vital Signs (Past 12 Hours) Vital Signs Temp Pulse Pulse Resp BP Pulse Ox O2 Del Method 11/12/22 12:33 36.7 C 75 18 140/75 95 Room Air 11/12/22 07:45 64 11/12/22 08:08 36.5 C 67 20 158/67 H 95 Room Air 11/12/22 03:52 36.6 C 90 16 175/73 H 96 Room Air
[2022-11-13] MEDS: ATORVASTATIN 40 MG TAB PO SCH (08:38)
[2022-11-13] MEDS: ASPIRIN 81 MG ECTAB PO SCH (08:38)
[2022-11-13] MEDS: CLOPIDOGREL BISULFATE 75 MG TAB PO SCH (08:38)
--- NOTE | 2022-11-13 17:42 | Hospitalist Progress Note ---
Date of Service November 13, 2022 Assessment & Plan (1) Acute CVA (cerebrovascular accident): (2) Meningioma: (3) Weakness of right upper extremity: (4) Dysarthria: Plan: L thalamic infarct Present on admission with dysarthria and right side weakness CT head on admission showed4.3 cm hyperdense partially calcified extra-axial mass involving the mid aspect of the falx cerebri extending into the superior aspect of the quadrigeminal plate cistern is suggestive of a probable meningioma causing local mass effect. Teleneurology with Jennifer was contacted by the ER. TPA was not given due to the increased bleeding risk associated with meningioma. Meningioma is known since 2015 and previously followed with Dr. Rosales with neurology as outpatient, was nonoperable, has not followed with neurology since this physician retired years ago. Pt notes intermittent visual disturbances every few months as per HPI, none today. Admitting team discussed case with Dr. Casey, neurologist that recommended statin and aspirin CTA head/Neck showed no evidence of hemorrhage, midline shift, or acute territorial ischemia . approximately 4 cm extra-axial mass lesion in the posterior fossa as detailed above. This is typical for a meningioma and causes localized mass effect. There is no evidence of obstructing hydrocephalus. Brain MRI showedfindings are concerning for left thalamic infarct. No evidence of hemorrhage. Extra-axial mass involving the falx which may represent a meningioma. Local mass effect is noted. ECHO showed no evidence of shunting. LV systolic function is normal with EF 60- 65% Neuro pn board recommended dual antiplatelet therapy with Plavix and aspirin for 3 weeks, then after 21 days to continue aspirin alone Continue statin daily PT/OT recommended inpatient rehab Continue physical and occupation therapy Pt will need to arrange for Zio patch outpatient fall precaution Right Thumb pain Xray of hand showedNo acute fracture or dislocation. Osteoarthritis of the h and and wrist, severe within the first carpal metacarpal joint. Doppler of RUE showed No evidence of deep venous thrombus. Improved significantly DVT ppx: teds, scds, aspirin 81/ plavix mg daily CODE: DNR/DNI Disposition Waiting for placement to rehab Admission and Anticipated Discharge Date Admission Date: November 09, 2022 Subjective Pt was seen and examined for follow up of acute CVA Sitting in chair with no acute distress with both sisters at bedside Pt said that she feels ok She said that she is not having anymore pain in her right thumb Update sisters and answered all the questions Denies any chest pain, palpitation, dizziness and SOB Review of Systems Review of Systems: All systems reviewed & are unremarkable except as noted in Subjective Physical Exam Physical Exam: General- No acute distress Head- atraumatic Eyes- PERRL, EOMI, ENT- oropharynx clear Neck- supple, no JVD Lungs- clear to auscultation Heart- regular rhythm; no murmur Abdomen- normal bowel sounds, soft, nontender Extremities- no calf tenderness Neuro- alert, oriented, PERRL, EOMI; no facial palsy; no dysarthria, RUE weakness, decrease strength in RLE Skin- warm & dry Results & Data Results & Data ([facility]) Vital Signs (Past 12 Hours) Vital Signs Temp Pulse Pulse Resp BP Pulse Ox O2 Del Method 11/13/22 17:23 78 11/13/22 15:46 37.5 C 84 16 137/74 95 Room Air 11/13/22 11:33 37.0 C 71 16 146/73 H 96 Room Air 11/13/22 08:15 73 11/13/22 08:15 Room Air 11/13/22 07:14 36.7 C 66 18 156/77 H 96 Room Air
[2022-11-14] MEDS: ATORVASTATIN 40 MG TAB PO SCH (07:50)
[2022-11-14] MEDS: ASPIRIN 81 MG ECTAB PO SCH (07:50)
[2022-11-14] MEDS: CLOPIDOGREL BISULFATE 75 MG TAB PO SCH (07:50)
--- NOTE | 2022-11-14 15:40 | Hospitalist Progress Note ---
Date of Service November 14, 2022 Assessment & Plan (1) Acute CVA (cerebrovascular accident): (2) Meningioma: (3) Weakness of right upper extremity: (4) Dysarthria: Plan: L thalamic infarct Present on admission with dysarthria and right side weakness CT head on admission showed4.3 cm hyperdense partially calcified extra-axial mass involving the mid aspect of the falx cerebri extending into the superior aspect of the quadrigeminal plate cistern is suggestive of a probable meningioma causing local mass effect. Teleneurology with Jennifer was contacted by the ER. TPA was not given due to the increased bleeding risk associated with meningioma. Meningioma is known since 2015 and previously followed with Dr. Rosales with neurology as outpatient, was nonoperable, has not followed with neurology since this physician retired years ago. Pt notes intermittent visual disturbances every few months as per HPI, none today. Admitting team discussed case with Dr. Casey, neurologist that recommended statin and aspirin CTA head/Neck showed no evidence of hemorrhage, midline shift, or acute territorial ischemia . approximately 4 cm extra-axial mass lesion in the posterior fossa as detailed above. This is typical for a meningioma and causes localized mass effect. There is no evidence of obstructing hydrocephalus. Brain MRI showedfindings are concerning for left thalamic infarct. No evidence of hemorrhage. Extra-axial mass involving the falx which may represent a meningioma. Local mass effect is noted. ECHO showed no evidence of shunting. LV systolic function is normal with EF 60- 65% Neuro pn board recommended dual antiplatelet therapy with Plavix and aspirin for 3 weeks, then after 21 days to continue aspirin alone Continue statin daily PT/OT recommended inpatient rehab Continue physical and occupation therapy Pt will need to arrange for Zio patch outpatient fall precaution Right Thumb pain Xray of hand showedNo acute fracture or dislocation. Osteoarthritis of the zaidi d and wrist, severe within the first carpal metacarpal joint. Doppler of RUE showed No evidence of deep venous thrombus. Resolved DVT ppx: teds, scds, aspirin 81/ plavix mg daily CODE: DNR/DNI Disposition Waiting for placement to rehab Admission and Anticipated Discharge Date Admission Date: November 09, 2022 Subjective Pt was seen and examined for follow up of acute CVA Sitting in chair with no acute distress daughter at bedside Pt said that she feels ok her strength slightly improves today Update daughter at bedside and answered all her questions Denies any chest pain, palpitation, dizziness and SOB Review of Systems Review of Systems: All systems reviewed & are unremarkable except as noted in Subjective Physical Exam Physical Exam: General- No acute distress Head- atraumatic Eyes- PERRL, EOMI, ENT- oropharynx clear Neck- supple, no JVD Lungs- clear to auscultation Heart- regular rhythm; no murmur Abdomen- normal bowel sounds, soft, nontender Extremities- no calf tenderness Neuro- alert, oriented, PERRL, EOMI; no facial palsy; no dysarthria, RUE weakness, decrease strength in RLE Skin- warm & dry Results & Data Results & Data ([facility]) Vital Signs (Past 12 Hours) Vital Signs Temp Pulse Pulse Resp BP Pulse Ox O2 Del Method 11/14/22 11:08 36.7 C 80 18 107/58 L 96 Room Air 11/14/22 07:30 62 11/14/22 07:30 Room Air
[2022-11-14] MEDS: NYSTATIN SUSP 500,000 U/5 ML UDC PO SCH (22:07)
[2022-11-15 05:57] LABS: Hematocrit (blood only) 29.9 % (34.1-44.9); Mean Corpuscular Hemoglobin 31.8 pg (25.0-34.0); Mean Corpuscular Hgb Conc 33.4 g/dL (32.0-36.0); Mean Corpuscular Volume 95.2 fL (80.0-100.0); Mean Platelet Volume 10.4 fL (9.4-12.3); Platelet Count 195 K/uL (130-400); RDW Coefficient of Variation 13.2 % (11.5-14.5); RDW Standard Deviation 45.8 fL (36.4-46.3); Red Blood Count 3.14 M/uL (3.93-5.22); White Blood Count 6.39 K/ul (4.8-10.8)
[2022-11-15] MEDS: ASPIRIN 81 MG ECTAB PO SCH (07:50)
[2022-11-15] MEDS: ATORVASTATIN 40 MG TAB PO SCH (07:50)
[2022-11-15] MEDS: CLOPIDOGREL BISULFATE 75 MG TAB PO SCH (07:50)
[2022-11-15] MEDS: NYSTATIN SUSP 500,000 U/5 ML UDC PO SCH ×3 (08:57→17:41)
[2022-11-15] MEDS ORDERED: predniSONE 10 MG TABLET PO ONE (13:15)
--- NOTE | 2022-11-15 18:36 | Hospitalist Progress Note ---
Date of Service November 15, 2022 Assessment & Plan (1) Acute CVA (cerebrovascular accident): (2) Meningioma: (3) Weakness of right upper extremity: (4) Dysarthria: Plan: L thalamic infarct Present on admission with dysarthria and right side weakness CT head on admission showed4.3 cm hyperdense partially calcified extra-axial mass involving the mid aspect of the falx cerebri extending into the superior aspect of the quadrigeminal plate cistern is suggestive of a probable meningioma causing local mass effect. Teleneurology with Jennifer was contacted by the ER. TPA was not given due to the increased bleeding risk associated with meningioma. Meningioma is known since 2015 and previously followed with Dr. Rosales with neurology as outpatient, was nonoperable, has not followed with neurology since this physician retired years ago. Pt notes intermittent visual disturbances every few months as per HPI, none today. Admitting team discussed case with Dr. Casey, neurologist that recommended statin and aspirin CTA head/Neck showed no evidence of hemorrhage, midline shift, or acute territorial ischemia . approximately 4 cm extra-axial mass lesion in the posterior fossa as detailed above. This is typical for a meningioma and causes localized mass effect. There is no evidence of obstructing hydrocephalus. Brain MRI showedfindings are concerning for left thalamic infarct. No evidence of hemorrhage. Extra-axial mass involving the falx which may represent a meningioma. Local mass effect is noted. ECHO showed no evidence of shunting. LV systolic function is normal with EF 60- 65% Neuro pn board recommended dual antiplatelet therapy with Plavix and aspirin for 3 weeks, then after 21 days to continue aspirin alone Continue statin daily PT/OT recommended inpatient rehab Continue physical and occupation therapy Pt will need to arrange for Zio patch outpatient fall precaution Right Thumb pain Xray of hand showedNo acute fracture or dislocation. Osteoarthritis of the zaidi d and wrist, severe within the first carpal metacarpal joint. Doppler of RUE showed No evidence of deep venous thrombus. Resolved rash Will start on low dose steroid Will add topical benadryl Thrush Pt said in the past the Nystatin did not work Will start a short course of diflucan while in the hospital DVT ppx: teds, scds, aspirin 81/ plavix mg daily CODE: DNR/DNI Disposition Waiting for placement to rehab Admission and Anticipated Discharge Date Admission Date: November 09, 2022 Subjective Pt was seen and examined for follow up of acute CVA Sitting in chair with no acute distress daughter at bedside Pt said that she feels ok Update daughter at bedside and answered all her questions Denies any chest pain, palpitation, dizziness and SOB Review of Systems Review of Systems: All systems reviewed & are unremarkable except as noted in Subjective Physical Exam Physical Exam: General- No acute distress Head- atraumatic Eyes- PERRL, EOMI, ENT- oropharynx clear Neck- supple, no JVD Lungs- clear to auscultation Heart- regular rhythm; no murmur Abdomen- normal bowel sounds, soft, nontender Extremities- no calf tenderness Neuro- alert, oriented, PERRL, EOMI; no facial palsy; no dysarthria, RUE weakness, decrease strength in RLE Skin- warm & dry Results & Data Results & Data ([facility]) Vital Signs (Past 12 Hours) Vital Signs Temp Pulse Pulse Resp BP Pulse Ox O2 Del Method 11/15/22 16:40 36.8 C 71 18 134/65 97 Room Air 11/15/22 15:16 76 11/15/22 11:36 36.7 C 73 17 115/67 96 Room Air 11/15/22 08:30 63 11/15/22 07:42 36.8 C 68 18 137/66 94 Room Air
[2022-11-15] MEDS ORDERED: FLUCONAZOLE 100 MG/2.5 ML PO SCH (21:00)
[2022-11-15] MEDS: CLOTRIMAZOLE 10 MG TROCHE BUCCAL SCH (22:24)
[2022-11-16] MEDS: ASPIRIN 81 MG ECTAB PO SCH (08:05)
[2022-11-16] MEDS: ATORVASTATIN 40 MG TAB PO SCH (08:05)
[2022-11-16] MEDS: CLOPIDOGREL BISULFATE 75 MG TAB PO SCH (08:05)
[2022-11-16] MEDS: CLOTRIMAZOLE 10 MG TROCHE BUCCAL SCH ×2 (08:05→11:27)
[2022-11-16] MEDS ORDERED: predniSONE 10 MG TABLET PO ONE (11:15)
--- NOTE | 2022-11-16 13:00 | Discharge Summary ---
Date of Service November 16, 2022 Admission HPI Per Admitting Provider This is an 87 yo F with PMhx of breast cancer s/p bilateral mastectomy in the early , and hx of meningioma which was nonoperable since 2014, who presents with acute onset of right lower extremity weakness which began at approximately 1330 this afternoon. She also had dysarthria, right upper and lower extremity weakness at the same time. Pt reports that she had difficulty calling on the phone, and when she attempted to stand from a sitting position, she slumped down to the ground. Pt was trying to call her son who lives next door and 911 for about an hour until she was able to get 911 [place] come [place] [facility] [place] She feels her speech is a bit better at this time, as she can say more than one word although it is more garbled. Pt notes she is unable to move her right arm much at all, and has to assist it with the left. Strength in the right leg is weak compared to the left as well. Prior to this event, she lives at home independently and does not use any ambulatory devices. Pt notes previously followed with Dr. Rosales with neurology for the meningioma and that it was non operable. She mentions getting "blotchy eyes" with spots and visual disturbances every few months since knowing that the meningioma was there, and that after lying down for 20-30 minutes this would improve. Denies any visual prodrome today and denies any visual disturbances like this recently. Pt denies headache. Family Hx: has one younger brother who of throat/mouth cancer and reports he chewed snuff. Denies family hx of heart disease, lung issues, diabetes, stroke. Surgical Hx: small bowel obstruction with lysis of adhesions in 2015, bilateral mastectomy in , partial hysterectomy prior to 1979. Social Hx: Pt does not routinely take any medications. No hx of smoking or alcohol use. Principal Diagnosis Acute CVA (cerebrovascular accident): Left thalamic infarct Elevated blood pressure Meningioma: Weakness of right upper extremity: Right Thumb pain Rash Thrush Discharge Exam General- No acute distress Head- atraumatic Eyes- PERRL, EOMI, ENT- oropharynx clear Neck- supple, no JVD Lungs- clear to auscultation Heart- regular rhythm; no murmur Abdomen- normal bowel sounds, soft, nontender Extremities- no calf tenderness Neuro- alert, oriented, PERRL, EOMI; no facial palsy; no dysarthria, RUE weakness, decrease strength in RLE Skin- warm & dry Discharge Data Allergies Allergy/AdvReac Type Severity Reaction Status Date / Time No Known Allergies Allergy Verified 11/09/22 16:35 Consultations 11/09/22 16:22 ED Decision to Admit Stat 11/09/22 16:39 Consult Neurology Routine Ordered Studies 11/09/22 15:36 CT angio head w con Stat CT angio neck with con Stat CT head/brain wo con Stat 11/09/22 17:22 MR brain wo/w con Routine 11/11/22 US venous doppler UE RT Routine Laboratory Results WBC 6.39 K/ul (4.8-10.8) 11/15/22 05:44 RBC 3.14 M/uL (3.93-5.22) L 11/15/22 05:44 Hgb 10.0 g/dl (12.0-16.0) L 11/15/22 05:44 Hct 29.9 % (34.1-44.9) L 11/15/22 05:44 MCV 95.2 fL (80.0-100.0) 11/15/22 05:44 MCH 31.8 pg (25.0-34.0) 11/15/22 05:44 MCHC 33.4 g/dL (32.0-36.0) 11/15/22 05:44 RDW Std Deviation 45.8 fL (36.4-46.3) 11/15/22 05:44 RDW Coeff of Valeriy 13.2 % (11.5-14.5) 11/15/22 05:44 Plt Count 195 K/uL (130-400) 11/15/22 05:44 MPV 10.4 fL (9.4-12.3) 11/15/22 05:44 Immature Gran % (Auto) 0.2 % 11/12/22 07:19 Neut % (Auto) 67.0 % 11/12/22 07:19 Lymph % (Auto) 20.1 % 11/12/22 07:19 Hunt % (Auto) 9.5 % 11/12/22 07:19 Eos % (Auto) 2.5 % 11/12/22 07:19 Baso % (Auto) 0.7 % 11/12/22 07:19 Neut # (Auto) 4.00 K/uL (1.4-6.5) 11/12/22 07:19 Lymph # (Auto) 1.20 K/uL (1.2-3.4) 11/12/22 07:19 Hunt # (Auto) 0.57 K/uL (0.24-0.82) 11/12/22 07:19 Eos # (Auto) 0.15 K/uL (0-0.50) 11/12/22 07:19 Baso # (Auto) 0.04 K/uL (0-0.2) 11/12/22 07:19 Immature Gran # (Auto) 0.01 K/uL (0.00-0.02) 11/12/22 07:19 PT 10.7 Seconds (9.0-12.0) 11/09/22 15:30 INR 1.0 (0.9-1.1) 11/09/22 15:30 APTT 26.0 Seconds (21.0-31.0) 11/09/22 15:30 PTT Ratio 0.9 11/09/22 15:30 Sodium 141 mmol/L (136-145) 11/12/22 07:19 Potassium 3.8 mmol/L (3.5-5.1) 11/12/22 07:19 Chloride 109 mmol/L (98-107) H 11/12/22 07:19 Carbon Dioxide 26 mmol/L (21-32) 11/12/22 07:19 Anion Gap 6 (3-11) 11/12/22 07:19 BUN 11 mg/dl (6-23) 11/12/22 07:19 Creatinine 0.52 mg/dl (0.6-1.2) L 11/12/22 07:19 Est Cr Clr Drug Dosing 69.9 ml/min 11/12/22 07:19 Est GFR ( Amer) 100.3 ml/min 11/12/22 07:19 Est GFR (Non-Af Amer) 86.5 ml/min 11/12/22 07:19 BUN/Creatinine Ratio 21.2 (10-20) H 11/12/22 07:19 Glucose 95 mg/dl (70-99(Fasting)) 11/12/22 07:19 POC Glucose 97 mg/dl (70-99) 11/09/22 15:52 Estimat Average Glucose 114 mg/dl 11/10/22 05:37 Hemoglobin A1c 5.6 % (4.5-5.6) 11/10/22 05:37 Calcium 8.1 mg/dl (8.5-10.1) L 11/12/22 07:19 Magnesium 2.0 mg/dl (1.7-2.4) 11/09/22 15:30 Total Bilirubin 0.6 mg/dl (0.2-1.0) 11/09/22 15:30 AST 21 U/L (13-39) 11/09/22 15:30 ALT 13 U/L (7-52) 11/09/22 15:30 Alkaline Phosphatase 53 U/L (34-104) 11/09/22 15:30 Troponin I High Sens 11.3 pg/ml (0-14) 11/09/22 15:30 Total Protein 6.8 gm/dl (6.0-8.3) 11/09/22 15:30 Albumin 4.1 gm/dl (3.4-5.0) 11/09/22 15:30 Globulin 2.7 gm/dl (2.5-4.0) 11/09/22 15:30 Albumin/Globulin Ratio 1.5 (0.9-2) 11/09/22 15:30 Triglycerides 89 mg/dl (0-150) 11/10/22 05:37 Cholesterol 221 mg/dl (0-200) H 11/10/22 05:37 LDL Cholesterol, Calc 141 mg/dl 11/10/22 05:37 VLDL Cholesterol, Calc 18 mg/dl (0-30) 11/10/22 05:37 HDL Cholesterol 62 mg/dl 11/10/22 05:37 Cholesterol/HDL Ratio 3.6 (0-5) 11/10/22 05:37 SARS-CoV-2, RNA, NAAT NEGATIVE (NEGATIVE) 11/09/22 14:38 Blood Type A Positive 11/09/22 16:34 Antibody Screen NEGATIVE 11/09/22 16:34 Impressions Chest X-Ray 11/09/22 15:36 XR chest 1V portable CLINICAL HISTORY: neuro deficit, acute stroke suspected TECHNIQUE: Single frontal radiograph of the chest was obtained. Comparison: None available at the time of this dictation. FINDINGS: No lines and tubes are seen. Calcified aortic knob is seen. There is suggestion of emphysema. No evidence of pleural effusion or pneumothorax. IMPRESSION: No acute chest disease. ACT 112: Negative or not required by law. Electronically signed by: Timmy Mckinnon M.D. 11/09/2022 4:[address] 11/09/22 15:36 CT head/brain wo con CLINICAL HISTORY: 87 years-old Female with neuro deficit, acute stroke suspected. Acute strokelike symptoms. TECHNIQUE: Multiple axial CT images of the head were obtained without contrast. A dose lowering technique was utilized adhering to the principles of ALARA. COMPARISON: CTA had and neck of same day FINDINGS: No acute intracranial hemorrhage, midline shift, intra-axial mass, hydrocephalus, territorial ischemia or abnormal extra-axial collection. Hyperdense partially calcified mass in the superior quadrigeminal plate cistern within the falx cerebri measures approximately 4.3 x 3.3 x 3.5 cm causing mass effect upon the adjacent third and lateral ventricles, thalami and parietal lobes. Involutional changes. Moderate white matter hypodensities suggestive of chronic microvascular ischemic disease. Cerebral vascular calcifications. The calvarium is intact. The paranasal sinuses, mastoid air cells, and middle ear cavities are clear. IMPRESSION: 1. No acute intracranial abnormality. 2. 4.3 cm hyperdense partially calcified extra-axial mass involving the mid aspect of the falx cerebri extending into the superior aspect of the quadrigeminal plate cistern is suggestive of a probable meningioma causing local mass effect. As a precautionary measure, a nonemergent follow-up MRI of the brain with and without IV contrast may be considered. 3. Involutional changes with chronic microvascular ischemic disease. ACT 112: Negative or not required by law. The above report was generated using voice recognition software. It may contain grammatical, syntax or spelling errors. Electronically signed by: Reynaldo George M.D. 11/09/2022 4:00 PM Head CTA 11/09/22 15:36 CT ANGIOGRAM OF THE BRAIN; CT ANGIOGRAM OF THE NECK CLINICAL HISTORY: Right-sided weakness. Neurological deficit. Stroke like symptoms. COMPARISON STUDY: Unenhanced CT of the brain performed concurrently on 11/09/2022. TECHNIQUE: Following the IV administration of 109 of Optiray 320, CT angiogram of the head and neck was performed from the aortic arch to the vertex. Images are reviewed in the axial, sagittal, and coronal planes. 3-D MIPS images are created and assessed. IV contrast was administered without complication. All measurements were calculated based on NASCET criteria. A dose lowering technique was utilized adhering to the principles of ALARA. CT DOSE: 1180.87 mGy.cm FINDINGS: Brain parenchyma: There is age-related involutional change noting moderate confluent subcortical and periventricular microangiopathic disease. There is no evidence of hemorrhage, midline shift, or acute territorial ischemia by CT criteria noting angiographic phase technique. There is an approximately 4 x 4 x 4 cm calcification-containing extra-axial mass identified in the posterior fossa along the tentorium cerebelli and falx. This causes localized mass effect. There is no evidence of obstructing hydrocephalus. No additional enhancing lesion is seen. The ventricles, sulci, and cisterns are prominent secondary to involutional change. Mitchell-white matter differentiation is preserved. No extra- axial fluid collection is seen. Thoracic aorta: There is atherosclerotic calcification of the thoracic aorta. Visualized portions of the thoracic aorta are normal in caliber. The aortic arch demonstrates standard 3-vessel anatomy. Right carotid arterial system: The right common carotid artery is widely patent, as are the right internal and external carotid arteries. Mild calcified plaque is seen in the carotid bulb. Left carotid arterial system: The left common carotid artery is widely patent, as are the left internal and external carotid arteries. Calcified plaque is seen in the carotid bulb. Vertebral arteries: The vertebral arteries are widely patent bilaterally noting left-sided dominance. Subclavian arteries: Widely patent bilaterally. Intracranial vasculature: There is atherosclerotic calcification of the cavernous carotid and vertebral arteries. The [place] is developmentally complete. The internal carotid arteries are patent at the skull base, as are the anterior and middle cerebral arteries bilaterally. The vertebrobasilar system and posterior cerebral arteries are widely patent. The left vertebral artery is dominant. There is no aneurysm, high-grade stenosis, or focal vessel cut off seen throughout the intracranial circulation. Jugular veins: Patent bilaterally. Dural sinuses: Patent. 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 Partially visualized upper lobe lung parenchyma appears clear noting parenchymal scarring. Soft tissues: The visualized pharyngeal soft tissues are normal in appearance noting angiographic phase technique. The oropharyngeal airway appears widely patent. The thyroid gland is mildly enlarged and heterogeneous. The salivary glands are normal in appearance. No cervical lymphadenopathy is seen. Skeletal structures: The skeletal structures are osteopenic. The calvarium appears intact. The cervical spine is maintained noting mild multilevel spondylosis. No lytic or blastic lesion is seen. Orbits: The bony orbits are intact. Orbital contents are normal as visualized noting bilateral ocular lens implants. Sinuses and mastoids: The paranasal sinuses are clear. The mastoid air cells are well pneumatized. IMPRESSION: 1. There is no evidence of hemorrhage, midline shift, or acute territorial ischemia by CT criteria noting angiographic phase technique. 2. There is approximately 4 cm extra-axial mass lesion in the posterior fossa as detailed above. This is typical for a meningioma and causes localized mass effect. There is no evidence of obstructing hydrocephalus. 3. Unremarkable CT angiogram of the brain. 4. Unremarkable CT angiogram of the neck. ACT 112: Negative or not required by law. Electronically signed by: Nicko Love M.D. 11/09/2022 4:32 PM Neck CTA 11/09/22 15:36 CT ANGIOGRAM OF THE BRAIN; CT ANGIOGRAM OF THE NECK CLINICAL HISTORY: Right-sided weakness. Neurological deficit. Stroke like symptoms. COMPARISON STUDY: Unenhanced CT of the brain performed concurrently on 11/09/2022. TECHNIQUE: Following the IV administration of 109 of Optiray 320, CT angiogram of the head and neck was performed from the aortic arch to the vertex. Images are reviewed in the axial, sagittal, and coronal planes. 3-D MIPS images are created and assessed. IV contrast was administered without complication. All measurements were calculated based on NASCET criteria. A dose lowering technique was utilized adhering to the principles of ALARA. CT DOSE: 1180.87 mGy.cm FINDINGS: Brain parenchyma: There is age-related involutional change noting moderate confluent subcortical and periventricular microangiopathic disease. There is no evidence of hemorrhage, midline shift, or acute territorial ischemia by CT criteria noting angiographic phase technique. There is an approximately 4 x 4 x 4 cm calcification-containing extra-axial mass identified in the posterior fossa along the tentorium cerebelli and falx. This causes localized mass effect. There is no evidence of obstructing hydrocephalus. No additional enhancing lesion is seen. The ventricles, sulci, and cisterns are prominent secondary to involutional change. Mitchell-white matter differentiation is preserved. No extra- axial fluid collection is seen. Thoracic aorta: There is atherosclerotic calcification of the thoracic aorta. Visualized portions of the thoracic aorta are normal in caliber. The aortic arch demonstrates standard 3-vessel anatomy. Right carotid arterial system: The right common carotid artery is widely patent, as are the right internal and external carotid arteries. Mild calcified plaque is seen in the carotid bulb. Left carotid arterial system: The left common carotid artery is widely patent, as are the left internal and external carotid arteries. Calcified plaque is seen in the carotid bulb. Vertebral arteries: The vertebral arteries are widely patent bilaterally noting left-sided dominance. Subclavian arteries: Widely patent bilaterally. Intracranial vasculature: There is atherosclerotic calcification of the cavernous carotid and vertebral arteries. The [place] is developmentally complete. The internal carotid arteries are patent at the skull base, as are the anterior and middle cerebral arteries bilaterally. The vertebrobasilar system and posterior cerebral arteries are widely patent. The left vertebral artery is dominant. There is no aneurysm, high-grade stenosis, or focal vessel cut off seen throughout the intracranial circulation. Jugular veins: Patent bilaterally. Dural sinuses: Patent. 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 Partially visualized upper lobe lung parenchyma appears clear noting parenchymal scarring. Soft tissues: The visualized pharyngeal soft tissues are normal in appearance noting angiographic phase technique. The oropharyngeal airway appears widely patent. The thyroid gland is mildly enlarged and heterogeneous. The salivary glands are normal in appearance. No cervical lymphadenopathy is seen. Skeletal structures: The skeletal structures are osteopenic. The calvarium appears intact. The cervical spine is maintained noting mild multilevel spondylosis. No lytic or blastic lesion is seen. Orbits: The bony orbits are intact. Orbital contents are normal as visualized noting bilateral ocular lens implants. Sinuses and mastoids: The paranasal sinuses are clear. The mastoid air cells are well pneumatized. IMPRESSION: 1. There is no evidence of hemorrhage, midline shift, or acute territorial ischemia by CT criteria noting angiographic phase technique. 2. There is approximately 4 cm extra-axial mass lesion in the posterior fossa as detailed above. This is typical for a meningioma and causes localized mass effect. There is no evidence of obstructing hydrocephalus. 3. Unremarkable CT angiogram of the brain. 4. Unremarkable CT angiogram of the neck. ACT 112: Negative or not required by law. Electronically signed by: Nicko Love M.D. 11/09/2022 4:32 PM Pelvis X-Ray 11/09/22 15:36 XR pelvis 1-2V routine CLINICAL HISTORY: fall TECHNIQUE: A single frontal view of the pelvis was obtained. Comparison: None available at the time of this dictation. FINDINGS: There is no evidence of an acute fracture. Degenerative changes are seen in the hip joints and lumbar spine. No soft tissue abnormality is seen. Excretion of contrast is noted in the ureters and bladder likely due to prior contrast study. IMPRESSION: Degenerative changes without evidence of acute abnormality. ACT 112: Negative or not required by law. Electronically signed by: Timmy Mckinnon M.D. 11/09/2022 4:52 PM Brain MRI 11/09/22 17:22 MR brain wo/w con CLINICAL HISTORY: CVA, hx of meningioma TECHNIQUE: Multiplanar and multisequence MR images of the brain were obtained prior to and following administration of gadolinium contrast. Comparison: Comparison is made to CTA head and neck 11/09/2022 FINDINGS: There is restricted diffusion in the left thalamus with associated mild edema. Foci of T2 and FLAIR hyperintensity are noted in the paraventricular areas consistent with chronic small vessel ischemic disease. Ex vacuo ventriculomegaly and sulcal enlargement is noted compatible with diffuse encephalomalacia. Redemonstration of a 29 x 36 mm extra-axial mass involving the falx cerebri extending into the superior aspect of the quadrigeminal plate cistern which demonstrates avid enhancement and calcific elements. This does create mass effect on the adjacent lateral ventricles. There is no evidence of acute intraparenchymal hemorrhage. No extra axial fluid collections are seen. The corpus callosum, pituitary gland, and cerebellar tonsils appear grossly unremarkable. Flow voids of the major intracranial arterial vessels are identified. The imaged portions of the paranasal sinuses, mastoid air cells, and orbits are unremarkable. IMPRESSION: 1. Findings are concerning for left thalamic infarct. No evidence of hemorrhage. 2. Extra-axial mass involving the falx which may represent a meningioma. Local mass effect is noted. ACT 112: Negative or not required by law. Electronically signed by: Timmy Mckinnon M.D. 11/09/2022 6:53 PM Venous Doppler Study 11/11/22 00:00 US venous doppler UE RT CLINICAL HISTORY: Rt arm pain and edema PROCEDURE: Right upper extremity real-time compression venous ultrasound with Duplex and Color Doppler imaging. Comparison: None available at the time of this dictation. FINDINGS: Utilizing real-time ultrasonic imaging multiple real time high-resolution ultrasonic images of the deep venous system were performed from the forearm through the subclavian vein including evaluation of the jugular vein. Compress ion real time ultrasonic imaging was performed in addition to color Doppler imaging and duplex Doppler ultrasound with velocity spectral profile analysis. There is normal compressibility of the deep venous system from the forearm through the subclavian vein. Normal vascular flow is currently identified. No evidence of superficial thrombosis is identified. Impression: No evidence of deep venous thrombus. ACT 112: Negative or not required by law. Electronically signed by: Timmy Mckinnon M.D. 11/11/2022 7:37 AM Hand X-Ray 11/11/22 12:30 XR hand RT 2V HISTORY: 87 years-old Female thumb pain edema chronic right hand pain COMPARISON: None TECHNIQUE: 2 views the right hand FINDINGS: Demineralized appearance the bones. 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 Moderate osteoarthritis of the first metacarpal phalangeal joint. 2 mm negative ulnar variance. No acute fracture, dislocation or osseous erosion. Mild diffuse soft tissue prominence. IMPRESSION: 1. No acute fracture or dislocation. 2. 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 ACT 112: Negative or not required by law. The above report was generated using voice recognition software. It may contain grammatical, syntax or spelling errors. Electronically signed by: Reynaldo George M.D. 11/11/2022 1:31 PM Hospital Course (1) Acute CVA (cerebrovascular accident): (2) Meningioma: (3) Weakness of right upper extremity: (4) Dysarthria: L thalamic infarct Present on admission with dysarthria and right side weakness CT head on admission showed4.3 cm hyperdense partially calcified extra-axial mass involving the mid aspect of the falx cerebri extending into the superior aspect of the quadrigeminal plate cistern is suggestive of a probable meningioma causing local mass effect. Teleneurology with [facility] was contacted by the ER. TPA was not given due to the increased bleeding risk associated with meningioma. Meningioma is known since 2014 and previously followed with Dr. Rosales with neurology as outpatient, was nonoperable, has not followed with neurology since this physician retired years ago. Pt notes intermittent visual disturbances every few months as per HPI, none today. Admitting team discussed case with Dr. Casey, neurologist that recommended statin and aspirin CTA head/Neck showed no evidence of hemorrhage, midline shift, or acute territorial ischemia . approximately 4 cm extra-axial mass lesion in the posterior fossa as detailed above. This is typical for a meningioma and causes localized mass effect. There is no evidence of obstructing hydrocephalus. Brain MRI showedfindings are concerning for left thalamic infarct. No evidence of hemorrhage. Extra-axial mass involving the falx which may represent a meningioma. Local mass effect is noted. ECHO showed no evidence of shunting. LV systolic function is normal with EF 60- 65% Neuro pn board recommended dual antiplatelet therapy with Plavix and aspirin for 3 weeks, then after 21 days to continue aspirin alone Continue statin daily PT/OT recommended inpatient rehab Continue physical and occupation therapy Pt will need to arrange for Zio patch outpatient fall precaution Elevated BP BP has been fluctuated Consider to start low dose BP med if blood pressure continues to elevate Continue monitor BP Right Thumb pain Xray of hand showedNo acute fracture or dislocation. 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 Doppler of RUE showed No evidence of deep venous thrombus. Resolved Rash received low dose steroid x 2 Continue topical benadryl prn Significantly improved Thrush Pt said in the past the Nystatin did not work Starting on clotrimazole PO for 5 days DVT ppx: teds, scds, aspirin 81/ plavix mg daily CODE: DNR/DNI Disposition plan to discharge to rehab Total Time Total Time Spent Total Time Spent (In Minutes): 40 minutes Discharge Plan Discharge Items Patient Disposition: Transfer Inpatient Rehab Fac Reason For Visit: CVA Discharge Diagnosis: Acute CVA (cerebrovascular accident): L thalamic infarct Meningioma: Weakness of right upper extremity: Right Thumb pain Rash Thrush Activity: Resume your previous activity Non-emergency contact: Primary Care Provider and Neurologist Call non-emergency contact if: you have any medication questions Follow-up/Referrals: Juanis Lara, P.A. [Primary Care Provider] - Diet: Heart Healthy Addtl Attending Provider Instructions: Follow up with your primary care provider once discharges from rehab Follow up with [facility] neurology in 4 to 6 weeks Continue physical and occupational therapy Continue dual antiplatelet therapy with Plavix and aspirin for 21 days, then after 21 days to continue aspirin alone You will need to arrange for outpatient Zio patch to monitor your heart ( your provider or neurology will order it) Continue monitor for any abnormal bleeding while on aspirin and plavix Avoid any additional NSAID due to increase risk of bleeding Continue monitor your blood pressure. Your provider at the rehab can initiate a low dose of blood pressure medication if blood pressure continue to elevate Fall precaution Pending Studies at Discharge: No Stand-Alone Forms: [facility], Medications to Prevent Stroke Skilled Items Patient informed of condition?: Yes DNR: Yes Discharge Level of Care: Acute rehab Communicable Disease: Yes Discharge Prognosis: Stable Lines: None Urinary Catheter: No Medications and DC Order Prescriptions: New atorvastatin 40 mg Tablet 80 mg PO QAM 30 Days Qty: 60 0RF clopidogrel 75 mg Tablet 75 mg PO QAM 30 Days Qty: 30 0RF aspirin 81 mg Tablet,Delayed Release (Dr/Ec) 81 mg PO QAM Qty: 30 0RF clotrimazole 10 mg Humberto 10 mg buccal Q6H 5 Days Qty: 20 0RF Anti-Itch(diphenhyd) with Zinc 2-0.1 % Cream 1 applic EXT Q8H PRN (Reason: itching) Qty: 15 0RF Discharge Orders: Discharge Order (Routine); Ordered 11/16/22 Ordered By: Seymour Crowell Admission Data Admit Date/Time: 11/09/22 16:39 Attending Provider: Seymour Crowell Admit Provider: Peewee Noyola Primary Care Provider: Juanis Lara Other Providers: Hollis Truong ; Peewee Noyola ; [facility]
== END 2022-11-16 13:22 | DRG 66 ==
LOC: ED 15:32 → SUATTDRO 16:39 → EDINP 16:39 → 4W 23:39